=== PATIENT | male | born 1960 | race Caucasian/White ===

== ENCOUNTER 2018-12-10 22:48 | Inpatient (IN) | payer MEDICAID, SELFPAY ==
[~2018-12-10] VITALS: Ht 172.7 cm; Wt 64.3 kg
[2018-12-10] MEDS ORDERED: MOM 30ML SUSPENSION UDC PO PRN (23:00)
[2018-12-10 23:29] VITALS: BP 140/92
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
[2018-12-11 06:33] VITALS: BP 160/86
[2018-12-11 18:00] VITALS: BP 125/65
--- NOTE | 2018-12-11 18:25 | NUR ---
Patient seen, note to follow
[2018-12-11] MEDS: traZODone 50 MG TAB PO PRN (22:34)
[2018-12-11] MEDS: ACETAMINOPHEN TAB 650MG DOSE (2X325MG) PO PRN (22:34)
[2018-12-12 06:30] VITALS: BP 137/86
[2018-12-12] MEDS ORDERED: FLUoxetine 10 MG CAP PO SCH (09:00)
[2018-12-12 18:00] VITALS: BP 123/77
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
[2018-12-12] MEDS: ACETAMINOPHEN TAB 650MG DOSE (2X325MG) PO PRN (21:50)
[2018-12-12] MEDS: traZODone 50 MG TAB PO PRN (21:55)
[2018-12-12] MEDS: MAALOX 30 ML SUSP *UDC PO PRN (22:25)
--- NOTE | 2018-12-13 04:35 | MHIPN ---
DATE: 12/10/2018 CHIEF COMPLAINT: Feels depressed. SUBJECTIVE: Seen for followup, in the presence of staff. Feels depressed, and says he has been in contact with his girlfriend, and that she says they are to remain apart, says he is concerned about his things as well, as they are still at the place they were living at, he says it is sixteen years of a relationship, as well as things, and he is concerned that his things may be discarded. He says he has no friends, and cannot ask anyone to assist him in that. MENTAL STATUS EXAMINATION: He is neat, cooperative. No agitation. No psychomotor retardation. He is tearful. Has suicidal thoughts. No firm plans. No homicidal ideas or intents. No evidence of any psychosis. Judgment and insight remain compromised. ASSESSMENT: Major depressive disorder. PLAN: He has been started on Prozac. We will increase it to 20 mg daily to help address his current state. We will encourage him to participate in activities on the unit. Tomorrow he will see the assigned psychiatrist, and the rest of the treatment team, so assistance can be offered regarding his social situation as well. This has quite a distinct impact on his own wellbeing. VITAL SIGNS: Blood pressure 157/86, pulse 92, temperature is 97.9.
[2018-12-13 06:00] VITALS: BP 134/76
[2018-12-13] MEDS: FLUoxetine 20 MG CAP PO SCH (08:32)
--- NOTE | 2018-12-13 10:56 | MHIPNPDOC ---
[facility] Progress Note Progress Note DATE OF SERVICE: 12/13/18 HISTORY: As per previous records (Dr. Morris's): "He is 58 years old. He is , has two children from a previous marriage. Has been living with his girl since the last 16 years. He says has been depressed for the last couple of months or so, says matters worsened after he received an eviction noticed, says generally gets along with his girlfriend, but has felt down for a considerable portion of the last few weeks. Sleep has been erratic. Appetite is fair, concentration is more difficult. Denies he felt suicidal till lately when he and his girlfriend had gone to see a couple of his best friends, says they had been drinking. He was asked to leave, he is not quite sure why, says he left and his girlfriend later. She told him she had slept with one of his best friends. He was quite upset, and she in fact blamed him for her sleeping with his best friend. He said he did not quite understand that. At some point, she asked him to leave as well, he says he then took an overdose, trazodone wanting to . Says matters were hazy at the time. He does not think he lost consciousness. The police were called. He was brought here. He was seen in the emergency room, was going to be admitted to inpatient psychiatric, but has noticed that his CPK values were quite raised, so he was admitted to the department of medicine where he has been seen by Dr. Roselia Manuel and the CPK values are falling, has been given intravenous fluids as well. Dr. Manuel had informed she is not quite sure whey the CPK values have gone up, but he is now being medically cleared, as they were coming down." VITAL SIGNS: See below. NEW TEST RESULTS: See below CURRENT MEDICATIONS: See below. MENTAL STATUS EXAMINATION: Patient is a 58 year old male, who is alert, cooperative, dressed in hospital clothes. Speech: Is fluent, spontaneous, normal rate, tone and volume. Language skills are good. Thought processes including: intact. Thought content: angry thoughts, depressive thoughts, anxious thoughts all of them to his recent problems with his ex girlfriend who cheated on him with one of his "friends". Description of abnormal or psychotic thoughts: Denies HI, denies active SI but admits to passive SI. Denies paranoia, denies AV hallucinations Judgment: fair Insight: limited. Orientation: x 3. Recent and remote memory: good. Attention span and concentration: good. Language: average. Fund of knowledge: average. Mood: depressed/anxious/irritable. Affect: congruent with mood DIAGNOSES: Other specified depressive disorder. Consider major depressive disorder. Status post overdose. Breakup with girlfriend. Limited social supports. ASSESSMENT: patient is very hurt about his girlfriend cheating on him with one of his "best friends". She told him that he had thrown her into somebody's else's arms. He says he didn't do that although he admits to have an anger problem, but despite his anger problem, he was very patient with her because she was hyper verbal especially after she took her medications in the morning. He says that she is bipolar, that she was very happy one day and next one show would lash out at him. He says that he finds himself back at square one, having to start from zero, because "everything that we had built for 16 years is gone". The patient admits to passive SI, he says that he has been attending groups and he finds them helpful. Denies medication side effects, denies psychosis. His CPK is still high, I will keep him only on his current medications until his CPK normalizes, then I may want to add something for his anger problem MANAGEMENT PLAN: As above TIME SPENT: 20 minutes. Vital Signs Vital Signs Date Time Temp Pulse Resp B/P (MAP) Pulse Ox O2 Delivery O2 Flow Rate FiO2 12/13/18 06:00 98.2 55 18 134/76 (95) Laboratory Data [facility] Labs Laboratory Tests 2 12/12/18 19:13: Total Creatine Kinase 746H 12/13/18 06:37: Total Creatine Kinase 722H Current Medications Current Medications Acetaminophen (Tylenol Tab) 650 mg Q6HP PRN PO HEADACHE or DISCOMFORT Last administered on 12/12/18at 21:50; Start 12/10/18 at 23:00 Al Hydrox/Mg Hydrox/Simethicone (Mylanta) 30 ml Q4HP PRN PO HEARTBURN/INDIGESTION Last administered on 12/12/18at 22:25; Start 12/10/18 at 23:00 Fluoxetine HCl (PROzac) 10 mg DAILY PO Last administered on 12/12/18at 08:37; Start 12/12/18 at 09:00; Stop 12/12/18 at 13:00; Status DC Fluoxetine HCl (PROzac) 20 mg DAILY PO Last administered on 12/13/18at 08:32; Start 12/13/18 at 09:00 Magnesium Hydroxide (Milk Of Magnesia) 30 ml DAILYPRN PRN PO CONSTIPATION; Start 12/10/18 at 23:00 Trazodone HCl (Desyrel) 50 mg QHSP PRN PO INSOMNIA Last administered on 12/12/18at 21:55; Start 12/10/18 at 23:00 Allergies Coded Allergies: No Known Allergies (Verified , 03/27/03) GROVER NORTON MD Dec 13, 2018 10:55
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
[2018-12-13] MEDS: ACETAMINOPHEN TAB 650MG DOSE (2X325MG) PO PRN ×2 (13:01→21:03)
[2018-12-13 18:00] VITALS: BP 122/77
[2018-12-13] MEDS: traZODone 50 MG TAB PO PRN (21:01)
[2018-12-14] MEDS: ACETAMINOPHEN TAB 650MG DOSE (2X325MG) PO PRN ×2 (04:44→21:39)
[2018-12-14 06:44] VITALS: BP 160/70
[2018-12-14] MEDS: FLUoxetine 20 MG CAP PO SCH (08:23)
[2018-12-14 09:27] LABS: ALT/SGPT 59 U/L (12-78); BILIRUBIN,TOTAL 0.3 MG/DL (0.2-1.0); BLOOD UREA NITROGEN 16 MG/DL (7-18); CALCIUM LEVEL 9.3 MG/DL (8.5-10.1); CARBON DIOXIDE LEVEL 32 MEQ/L (21-32); CHLORIDE LEVEL 101 MEQ/L (98-107); CPK CREATINE PHOSPHOKINASE 671 U/L (39-308); GLOMERULAR FILTRATION RATE > 60.0 (>56); GLUCOSE, FASTING 70 MG/DL (70-100); POTASSIUM SERUM 4.3 MEQ/L (3.5-5.1); SODIUM LEVEL 139 MEQ/L (136-145)
[2018-12-14 18:00] VITALS: BP 136/69
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
[2018-12-14] MEDS: traZODone 50 MG TAB PO PRN (21:39)
[2018-12-15] MEDS: ACETAMINOPHEN TAB 650MG DOSE (2X325MG) PO PRN (05:47)
[2018-12-15 06:47] VITALS: BP 132/70
[2018-12-15] MEDS: FLUoxetine 20 MG CAP PO SCH (08:22)
[2018-12-15] MEDS: IBUPROFEN 600 MG TAB PO PRN (11:47)
[2018-12-15] MEDS: MAALOX 30 ML SUSP *UDC PO PRN (15:30)
[2018-12-15] MEDS: GABAPENTIN 300 MG CAP PO SCH ×2 (17:12→21:16)
[2018-12-15 18:00] VITALS: BP 155/79
[2018-12-15] MEDS ORDERED: LIDOCAINE 5% (LIDODERM) PATCH TD ONE (19:00)
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
[2018-12-15] MEDS: traZODone 50 MG TAB PO PRN (21:16)
[2018-12-16 06:40] VITALS: BP 146/72
[2018-12-16] MEDS: IBUPROFEN 600 MG TAB PO PRN (06:49)
[2018-12-16] MEDS: GABAPENTIN 300 MG CAP PO SCH (08:10)
[2018-12-16] MEDS: FLUoxetine 20 MG CAP PO SCH (08:10)
--- NOTE | 2018-12-16 09:37 | REP ---
MRI LUMBAR SPINE WITHOUT CONTRAST: HISTORY: Back pain. Decreased signal intensity on T2-weighted images is present in the L3-4 through L5-S1 intervertebral discs. The discs are decreased in height. These findings are consistent with disc degeneration. There is no disc bulge or herniation at the L1-2 and L2-3 levels. The nerves exit the neural foramina without compression. A diffuse disc bulge is present at the L3-4 level. There is minimal compression of the thecal sac. There is hypertrophy of the posterior articulating facets. The L3 nerves exit the neural foramina without compression. A diffuse disc bulge is present at the L4-5 level. There is minimal compression of the thecal sac. There is hypertrophy of the posterior articulating facets. The L4 nerves exit the neural foramina without compression. A diffuse disc bulge is present at the L5-S1 level. This abuts the thecal sac and S1 nerves. There is hypertrophy of the posterior articulating facets. The L5 nerves exit the neural foramina without compression. The conus medullaris is normal in appearance terminating at the level of the T11-12 intervertebral disc. Normal signal intensity is present in the lumbar vertebral bodies. IMPRESSION: 1. Diffuse disc bulges at the L3-4 and L4-5 levels with minimal thecal sac compression. 2. Diffuse disc bulge at the L5-S1 level. This abuts the thecal sac and S1 nerves. Electronically Signed by Lowell Mahan MD 12/16/2018 09:41 A
[2018-12-16] MEDS ORDERED: FLUO20CA19 PO (11:31)
[2018-12-16] MEDS ORDERED: IBUP-1022 PO (11:31)
[2018-12-16] MEDS ORDERED: GABA-843 PO (11:31)
[2018-12-16] MEDS ORDERED: TRAZO50TA PO (11:31)
--- NOTE | 2018-12-20 11:42 | MHDSPDOC ---
[facility] Discharge Summary Discharge Summary DATE OF ADMISSION: Dec 10, 2018 at 23:12 DATE OF DISCHARGE: Dec 16, 2018 DISCHARGE DIAGNOSES: 1.Other specified depressive disorder. 2.Cannabis use disorder 3. Tobacco use disorder 4. Alcohol use disorder REASON FOR ADMISSION: Per Dr. mendes's H and P : "He is 58 years old. He was recently from his girlfriend.He has been in the past, has two children, they live in [place], near their mother. He was brought to the hospital after he had overdosed, and was also found to have high levels of creatine kinase, and was admitted to the medical floor before being transferred here. I saw him yesterday on the medical floor, on consult service, please refer to my summary for details related to the patient's hospitalization, circumstances leading up to it. He and his girlfriend broke up after she told him that she slept with his best friend, was a few days ago, earlier in the week, and the patient had been asked to leave the gathering, he says that he has been quite distraught with that, and took the overdose. He said he is also being evicted, and this has been stressing him out as well. He also indicated that he was not fully open with me yesterday, and that he has been suicidal for the last several weeks. Says he increasingly found it hard to cope. Does not take alcohol steadily, smokes marijuana regularly."" CONSULTANTS INVOLVED: None TREATMENT AND PROGRESS ON THE UNIT : Patient admitted on a 9.39 involuntary status from medical floor having depression in context of recent eviction and his girlfriend of 17 years cheating on him with his friend. On the medical floor post overdose he was given fluids for rhabdomyolysis with a CPK which trended do wn from 746 to 400's. He was started on 10 mg daily Po fluoxetine for mood and gabapentin 300 mg Po TID for back pain. He was encouraged to drink fluids and counselled regarding reported daily cannabis use, tobacco use and alcohol use. His fluoxetine was titrated up to 20 mg PO daily, reported improved mood after receiving individual and group therapy. Reports history of multiple past girlfriends cheating on him and issues with trusting others. We discussed how therapy may benefit him and his future relationships. During stay he denied suicidal or homicidal ideations or medication side effects. HOSPITAL COURSE: See above. DISCHARGE ASSESSMENT: On discharge patient in no acute distress, smiling with good eye contact, alert and oriented times 4, ready to leave, denies suicidal or homicidal ideations, denies hallucinations, denies paranoia, denies hattie. Mood is "good". MENTAL STATUS EXAMINATION ON DISCHARGE: Patient is a 58 year old male, who is alert, cooperative, thin with pool hair in ponytail, dressed in hospital clothes. Speech: Is fluent, spontaneous, normal rate, tone and volume. Language skills are good. Thought processes including: intact. Thought content: goal directed, he has plans for the future. Description of abnormal or psychotic thoughts: Denies SI, denies HI. Denies paranoia, denies AV hallucinations Judgment: fair Insight: limited Orientation: x 3. Recent and remote memory: good. Attention span and concentration: good. Language: average. Fund of knowledge: average. Mood: "good" Affect: euthymic,congruent with mood, smiles MEDICATIONS ON DISCHARGE: Scheduled Fluoxetine Hcl (Fluoxetine HCl) 20 Mg Cap, 20 MG PO DAILY for depression Gabapentin (Gabapentin) 300 Mg Cap, 300 MG PO TID for neuropathic pain Scheduled PRN Ibuprofen (Ibuprofen) 600 Mg Tab, 600 MG PO Q6HP PRN for MODERATE PAIN (PS 5-7) Trazodone HCl (Trazodone HCl) 50 Mg Tab, 50 MG PO QHSP PRN for INSOMNIA PLAN/FOLLOWUP ARRANGEMENTS: Follow Up Care Education Label * Medical * Medical Follow Up [facility] * Established With This Provider No * Therapist DR. CHAVIS * Date Dec 24, 2018 * Time 15:00 * Address of Clinic or Practice [address] [place] [address] * * Additional information Please arrive 15 minutes early to fill out new patient paperwork. Remember to bring your photo ID and insurance card. Follow Up Care Education Label * Mental Health Appt 1 * [facility] * Established With This Provider No * Therapist LA NENA * Date Dec 22, 2018 * Time 08:00 * Address of Clinic or Practice [address] [place] [address] * * Additional information Remember to bring your photo ID and insurance card. Follow Up Care Education Label * Mental Health Appt 2 * [facility] * Established With This Provider No * Therapist KRYSTIAN * Date Jan 11, 2019 * Time 10:30 * Address of Clinic or Practice [address] [place] [address] * * Additional information Remember to bring your photo ID and insurance card. The amount of time spent in the coordination of care for this patient was approximately 30 minutes. Vital Signs/I&Os Vital Signs Date Time Temp Pulse Resp B/P (MAP) Pulse Ox O2 Delivery O2 Flow Rate FiO2 12/16/18 06:40 98.1 79 16 146/72 (96) Laboratory Data Labs 24H Laboratory Tests 2 12/16/18 07:09: Total Creatine Kinase 476H Medications Scheduled Fluoxetine Hcl (Fluoxetine HCl) 20 Mg Cap, 20 MG PO DAILY for depression, #7 Gabapentin (Gabapentin) 300 Mg Cap, 300 MG PO TID for neuropathyc pain, #21 Scheduled PRN Ibuprofen (Ibuprofen) 600 Mg Tab, 600 MG PO Q6HP PRN for MODERATE PAIN (PS 5-7), #28 Trazodone HCl (Trazodone HCl) 50 Mg Tab, 50 MG PO QHSP PRN for INSOMNIA, #7 Allergies Coded Allergies: No Known Allergies (Verified , 03/27/03) WILY CHO PGY-1 Dec 16, 2018 13:40
== END 2018-12-16 15:05 | disposition home or self-care (01) | DRG 753 ==
LOC: M PSY 23:12
PROVIDERS: ADMIT Psychiatry & Neurology Psychiatry; ATTEND Psychiatry & Neurology Psychiatry
DX: F32.89 Other specified depressive episodes (principal); F17.210 Nicotine dependence, cigarettes, uncomplicated; F12.10 Cannabis abuse, uncomplicated; H54.62 Unqualified visual loss, left eye, normal vision right eye; F10.10 Alcohol abuse, uncomplicated; Z63.0 Problems in relationship with spouse or partner; Z91.5 Personal history of self-harm

== ENCOUNTER 2019-03-28 08:32 | Day surgery (SDC) | payer OTHER ==
[~2019-03-28] VITALS: Ht 172.7 cm; Wt 58.2 kg
[~2019-03-28 08:32] MED LIST: FLUO20CA19 PO; GABA-843 PO; IBUP-1022 PO; TRAZ1TAB10 PO; VITA200028 PO
[2019-03-28] MEDS ORDERED: NS 1,000 ML IV ONE (09:00)
[2019-03-28] MEDS ORDERED: LIDOCAINE 2% INJ 100 MG/5 ML SDV (FOR ANES.) As Ordered ONE (10:08)
[2019-03-28] MEDS ORDERED: PROPOFOL 200 MG/20 ML VIAL As Ordered ONE ×2 (10:08→10:31)
--- NOTE | 2019-03-28 10:54 | ROOR ---
Patient Name: Frederic Narayanan Procedure Date: 03/28/2019 10:16 AM Date of : 1960 Age: 58 Room: [facility] Gender: Male Note Status: Finalized Procedure: Colonoscopy Indications: Screening for colorectal malignant neoplasm Providers: Christopher Zhang MD Referring MD: Lex CHAIVS MD Requesting Provider: Medicines: Monitored Anesthesia Care Complications: No immediate complications. Procedure: Pre-Anesthesia Assessment: - Prior to the procedure, a History and Physical was performed, and patient medications and allergies were reviewed. The patient is competent. The risks and benefits of the procedure and the sedation options and risks were discussed with the patient. All questions were answered and informed consent was obtained. Patient identification and proposed procedure were verified by the physician, the nurse and the anesthesiologist in the procedure room. Mental Status Examination: alert and oriented. Airway Examination: normal oropharyngeal airway and neck mobility. Respiratory Examination: clear to auscultation. CV Examination: normal. Prophylactic Antibiotics: The patient does not require prophylactic antibiotics. Prior Anticoagulants: The patient has taken no previous anticoagulant or antiplatelet agents. ASA Grade Assessment: II - A patient with mild systemic disease. After reviewing the risks and benefits, the patient was deemed in satisfactory condition to undergo the procedure. The anesthesia plan was to use monitored anesthesia care (MAC). Immediately prior to administration of medications, the patient was re-assessed for adequacy to receive sedatives. The heart rate, respiratory rate, oxygen saturations, blood pressure, adequacy of pulmonary ventilation, and response to care were monitored throughout the procedure. The physical status of the patient was re-assessed after the procedure. The Colonoscope was introduced through the anus and advanced to the cecum, identified by appendiceal orifice and ileocecal valve. The colonoscopy was performed without difficulty. The patient tolerated the procedure well. The quality of the bowel preparation was fair. The ileocecal valve, appendiceal orifice, and rectum were photographed. Scope insertion time was 3 minutes. Scope withdrawal time was 9 minutes. The total duration of the procedure was 12 minutes. Findings: The perianal and digital rectal examinations were normal. Two sessile polyps were found in the ascending colon. The polyps were 10 to 12 mm in size. These polyps were removed with a hot snare. Resection and retrieval were complete. Verification of patient identification for the specimen was done by the physician and nurse using the patient's name, date and medical record number. Estimated blood loss was minimal. A 15 mm polyp was found in the transverse colon. The polyp was sessile. The polyp was removed with a hot snare. Resection and retrieval were complete. A few sessile polyps were found in the recto-sigmoid colon. The polyps were 4 to 5 mm in size. These polyps were removed with a cold snare. Resection and retrieval were complete. Non-bleeding external and internal hemorrhoids were found during retroflexion. The hemorrhoids were small. Impression: - Preparation of the colon was fair. - Two 10 to 12 mm polyps in the ascending colon, removed with a hot snare. Resected and retrieved. - One 15 mm polyp in the transverse colon, removed with a hot snare. Resected and retrieved. - A few 4 to 5 mm polyps at the recto-sigmoid colon, removed with a cold snare. Resected and retrieved. - Non-bleeding external and internal hemorrhoids. Recommendation: - Patient has a contact number available for emergencies. The signs and symptoms of potential delayed complications were discussed with the patient. Return to normal activities tomorrow. Written discharge instructions were provided to the patient. - High fiber diet. - Continue present medications. - Await pathology results. - Repeat colonoscopy in 3 years for surveillance based on pathology results. - Telephone GI clinic for pathology results in 2 weeks. - Return to primary care physician. Christopher Zhang MD Christopher Zhang MD 03/28/2019 10:54:10 AM Electronically signed by Christopher Zhang MD Number of Addenda: 0 Note Initiated On: 03/28/2019 10:16 AM Estimated Blood Loss: Estimated blood loss was minimal.
[2019-03-28 11:25] VITALS: BP 122/84
[2019-03-30] MEDS ORDERED: VITAD1000T PO (13:10)
== END 2019-03-28 12:50 | disposition home or self-care (01) ==
LOC: M OPP 08:32
PROVIDERS: ATTEND Internal Medicine Gastroenterology
DX: Z12.11 Encounter for screening for malignant neoplasm of colon (principal); K64.8 Other hemorrhoids; D12.4 Benign neoplasm of descending colon; K63.5 Polyp of colon; Z79.899 Other long term (current) drug therapy; F17.210 Nicotine dependence, cigarettes, uncomplicated

== ENCOUNTER 2019-03-30 11:06 | Inpatient (IN) | payer OTHER ==
[~2019-03-30] VITALS: Ht 172.7 cm; Wt 59.4 kg
[2019-03-30] MEDS ORDERED: PROZ40CA PO (11:14)
[2019-03-30] MEDS ORDERED: ZYPR5TAB2 PO (11:14)
[2019-03-30 11:55] LABS: BASO % 0.5 % (0.0-1.0); EOS # 0.3 10^3/uL (0.0-0.50); EOS % 3.9 % (0.0-3.0); HEMATOCRIT 43.5 % (42.0-52.0); HEMOGLOBIN 13.9 g/dl (13.5-17.5); LYMPH # 2.2 10^3/uL (1.5-4.5); LYMPH % 24.8 % (24.0-44.0); MEAN CORPUSCULAR HEMOGLOBIN 30.6 pg (27.0-33.0); MEAN CORPUSCULAR VOLUME 95.8 fl (80.0-96.0); MONO # 0.7 10^3/uL (0.0-0.8); MONO % 7.8 % (0.0-5.0); NEUTROPHILS # 5.5 10^3/uL (1.8-7.7); NEUTROPHILS % 62.7 % (36.0-66.0); PLATELET COUNT, AUTOMATED 240 10^3/uL (150-450); RED BLOOD COUNT 4.54 10^6/uL (4.30-6.10); WHITE BLOOD COUNT 8.8 10^3/uL (4.0-10.0)
[2019-03-30 12:06] LABS: INR 0.89; PARTIAL THROMBOPLASTIN TIME 27.7 SECONDS (25.0-38.4); PROTHROMBIN TIME 11.8 SECONDS (11.8-14.0)
[2019-03-30 12:21] LABS: ALBUMIN 3.9 GM/DL (3.2-5.2); ALT/SGPT 72 U/L (12-78); BILIRUBIN,DIRECT < 0.1 MG/DL (0.0-0.2); BILIRUBIN,TOTAL 0.2 MG/DL (0.2-1.0); BLOOD UREA NITROGEN 17 MG/DL (7-18); CALCIUM LEVEL 9.4 MG/DL (8.5-10.1); CARBON DIOXIDE LEVEL 31 MEQ/L (21-32); CHLORIDE LEVEL 101 MEQ/L (98-107); CREATININE FOR GFR 1.02 MG/DL (0.70-1.30); GLOMERULAR FILTRATION RATE > 60.0 (>56); GLUCOSE, FASTING 93 MG/DL (70-100); LIPASE 142 U/L (73-393); POTASSIUM SERUM 4.7 MEQ/L (3.5-5.1); SODIUM LEVEL 139 MEQ/L (136-145); TOTAL PROTEIN 6.9 GM/DL (6.4-8.2)
[2019-03-30] MEDS ORDERED: PANTOPRAZOLE 40MG INJ (PROTONIX) (C9113) IV ONE (12:45)
[2019-03-30] MEDS: NS 1,000 ML IV SCH ×3 (12:49→20:37)
[2019-03-30] MEDS ORDERED: FLUO20CA19 PO (13:10)
[2019-03-30] MEDS ORDERED: TRAZ-252 PO (13:10)
[2019-03-30] MEDS ORDERED: GABA600T4 PO (13:10)
[2019-03-30] MEDS ORDERED: CHOL100029 PO (13:10)
[2019-03-30] MEDS ORDERED: VENTAER INH (13:10)
[2019-03-30] MEDS ORDERED: IBUP1TAB6 PO (13:10)
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
[2019-03-30] MEDS: GABAPENTIN 300 MG CAP PO SCH ×2 (16:33→22:03)
[2019-03-30 19:21] LABS: HEMATOCRIT 37.4 % (42.0-52.0)
[2019-03-30] MEDS ORDERED: traZODone 50 MG TAB PO SCH (21:00)
[2019-03-30] MEDS ORDERED: OLANZapine 5 MG TAB PO SCH (21:00)
[2019-03-30 22:00] VITALS: BP_SYST 103; BP_SYST 105; BP_SYST 111; BP_DIAS 62; BP_DIAS 65; BP_DIAS 66
[2019-03-31] MEDS: NS 1,000 ML IV SCH ×2 (00:42→04:42)
[2019-03-31 05:51] LABS: HEMATOCRIT 38.2 % (42.0-52.0); HEMOGLOBIN 12.2 g/dl (13.5-17.5); MEAN CORPUSCULAR HEMOGLOBIN 31.2 pg (27.0-33.0); MEAN CORPUSCULAR HGB CONC 31.9 g/dl (32.0-36.5); MEAN CORPUSCULAR VOLUME 97.7 fl (80.0-96.0); PLATELET COUNT, AUTOMATED 185 10^3/uL (150-450); RED BLOOD COUNT 3.91 10^6/uL (4.30-6.10); WHITE BLOOD COUNT 7.9 10^3/uL (4.0-10.0)
[2019-03-31 06:00] VITALS: BP_SYST 120; BP_SYST 132; BP_SYST 140; BP_DIAS 77; BP_DIAS 80
[2019-03-31 06:11] LABS: BLOOD UREA NITROGEN 11 MG/DL (7-18); CALCIUM LEVEL 7.7 MG/DL (8.5-10.1); CARBON DIOXIDE LEVEL 30 MEQ/L (21-32); CHLORIDE LEVEL 112 MEQ/L (98-107); CREATININE FOR GFR 0.85 MG/DL (0.70-1.30); GLOMERULAR FILTRATION RATE > 60.0 (>56); GLUCOSE, FASTING 98 MG/DL (70-100); POTASSIUM SERUM 4.1 MEQ/L (3.5-5.1); SODIUM LEVEL 145 MEQ/L (136-145)
[2019-03-31] MEDS: GABAPENTIN 300 MG CAP PO SCH (08:42)
[2019-03-31] MEDS ORDERED: FLUoxetine 20 MG CAP PO SCH (09:00)
[2019-03-31] MEDS ORDERED: VITAMIN D 1,000 INTERNATIONAL UNITS TABLET PO SCH (09:00)
[2019-03-31 14:00] VITALS: BP 115/75
--- NOTE | 2019-03-31 14:16 | DS.PDOC ---
Discharge Summary General Date of Admission Mar 30, 2019 at 14:25 Date of Discharge 03/31/19 Attending Physician: TANVIR HORNER MD Discharge Summary PROCEDURES PERFORMED DURING STAY: None ADMITTING DIAGNOSES: Post procedural adverse reaction 2/2 significant polyp removal DISCHARGE DIAGNOSES: Post procedural adverse reaction 2/2 significant polyp removal COMPLICATIONS/CHIEF COMPLAINT: Bright red blood per rectum HISTORY OF PRESENT ILLNESS: Patient is a 58-year-old male who presented to ER after one episode of bleeding from his anus. He had an elective colonoscopy on March 28 of this year. During the colonoscopy he had multiple polyps removed with both hot and cold snares; he was also noted to have internal and external hemorrhoids at the time of the procedure. He had tolerated the procedure and was healing well until 3 am yesterday morning when he awoken by painful abdominal cramps. At that time he noticed bright red blood per his rectum that spontaneously resolved. He has not had any bleeding like this before in the past and has not had any bleeding since 3am yesterday morning. He denies weight loss, hair loss, headache, visual changes, chest pain, shortness of breath, cough, nausea, vomiting, diarrhea, muscle aches, worsening arthritis, change in mood HOSPITAL COURSE: He was given IV fluids in the ER and proven to be hemodynamically stable. Gastroenterology was consulted and patient was admitted to [facility]. H&H was monitored; patient did not have another episode of bleeding and H&H remained within normal limits. He was placed on a clear liquid diet. DISCHARGE MEDICATIONS: Please see below. ALLERGIES: Please see below. PHYSICAL EXAMINATION ON DISCHARGE: VITAL SIGNS: Please see below. GENERAL: patient is lying in bed and comfortable HEENT: Moist mucous membranes CARDIOVASCULAR EXAMINATION: RRR, S1S2 regular RESPIRATORY EXAMINATION: Clear to auscultation bilaterally ABDOMINAL EXAMINATION: soft, nontender, no organomegaly appreciated. EXTREMITIES: no edema or cyanosis noted SKIN: no ecchymosis noted NEUROLOGICAL EXAMINATION: CNII-XII intact, AAOx3 PSYCHIATRIC EXAMINATION: Normal affect LABORATORY DATA: Please see below. IMAGING: Colonoscopy 03/28/19: Preparation of the colon was fair. Two 10 to 12 mm polyps in the ascending colon, removed with a hot snare. Resected and retrieved. One 15 mm polyp in the transverse colon, removed with a hot snare. Resected and retrieved. A few 4 to 5 mm polyps at the recto-sigmoid colon, removed with a cold snare. Resected and retrieved. Non-bleeding external and internal hemorrhoids. PROGNOSIS: Good ACTIVITY: Can ambulate without a walker or cane DIET: As tolerated DISPOSITION: Patient is being discharged home. He is comfortable and stable. DISCHARGE INSTRUCTIONS: 1. Return to ER for an emergency ITEMS TO FOLLOWUP ON ON OUTPATIENT: 1. Dr. Coto 04/01 at 5:40 ([phone]) 2. Referral: Dr. Zhang's office will call with an appointment ([phone]) DISCHARGE CONDITION: Stable I saw and evaluated the patient. I agree with the findings and plan of care as documented in the documenters note. I spent 45 minutes coordinating this patient's discharge. Vital Signs/I&Os Vital Signs Date Time Temp Pulse Resp B/P (MAP) Pulse Ox O2 Delivery O2 Flow Rate FiO2 03/31/19 06:00 62 120/77 (91) 70 132/80 (97) 78 140/80 (100) 03/30/19 22:00 97.2 18 98 03/30/19 11:07 Room Air I&O- Last 24 Hours up to 6 AM 03/31/19 06:00 Intake Total 3150 ml Balance 3150 ml Laboratory Data Labs 24H Laboratory Tests 2 03/31/19 05:23: Nucleated Red Blood Cells % (auto) 0.0, Anion Gap 3L, Glomerular Filtration Rate > 60.0, Blood Urea Nitrogen 11, Creatinine 0.85, Sodium Level 145, Potassium Level 4.1, Chloride Level 112H, Carbon Dioxide Level 30, Calcium Level 7.7#L CBC/BMP Laboratory Tests 03/30/19 19:09 03/31/19 05:23 Red Blood Count 3.91 L, Mean Corpuscular Volume 97.7 H, Mean Corpuscular Hemoglobin 31.2, Mean Corpuscular Hemoglobin Concent 31.9 L, Red Cell Distribution Width 14.3, Calcium Level 7.7 #L Discharge Medications Scheduled Fluoxetine Hcl (Fluoxetine HCl) 20 Mg Capsule, 40 MG PO DAILY, (Reported) Gabapentin (Gabapentin) 600 Mg Tablet, 600 MG PO TID, (Reported) Olanzapine (Zyprexa) 5 Mg Tablet, 2.5 MG PO QHS, (Reported) Trazodone HCl (Trazodone HCl) 50 Mg Tablet, 50 MG PO QHS, (Reported) Vitamin D (Vitamin D3) 1,000 Unit Tablet, 1,000 UNITS PO DAILY, (Reported) Scheduled PRN Albuterol Sulfate (Ventolin Hfa) 18 Gm Hfa.aer.ad, 2 PUFF INH Q4H PRN for SHORTNESS OF BREATH, (Reported) Ibuprofen (Ibuprofen) 600 Mg Tablet, 600 MG PO TID PRN for PAIN, (Reported) Allergies Coded Allergies: No Known Allergies (Verified , 03/27/03) KRYSTIAN RICHARDSON S-3 Mar 31, 2019 14:16 TANVIR HORNER MD Apr 01, 2019 14:55
[2019-05-16] MEDS ORDERED: FLUO10CA15 PO (11:58)
[2019-05-25] MEDS ORDERED: FLUO10CA15 PO (11:39)
[2019-05-31] MEDS ORDERED: FLUO10CA15 PO (10:56)
== END 2019-03-31 15:44 | disposition home or self-care (01) | DRG 253 ==
LOC: M ED 11:06 → M ED INP 14:25 → M MSPAV 16:00
PROVIDERS: ADMIT Internal Medicine; ATTEND Internal Medicine
DX: K62.5 Hemorrhage of anus and rectum (principal); E55.9 Vitamin D deficiency, unspecified; F32.9 Major depressive disorder, single episode, unspecified; G47.00 Insomnia, unspecified; G40.909 Epilepsy, unspecified, not intractable, without status epilepticus; F17.200 Nicotine dependence, unspecified, uncomplicated; K64.4 Residual hemorrhoidal skin tags; M54.5 Low back pain; H54.62 Unqualified visual loss, left eye, normal vision right eye; Z87.820 Personal history of traumatic brain injury; Z79.899 Other long term (current) drug therapy; Z86.010 Personal history of colon polyps

== ENCOUNTER → 2019-04-26 | Outpatient (REF) ==
[~2019-04-26] MED LIST changes: +GABA600T4 PO; +IBUP1TAB6 PO; +PROZ40CA PO; +TRAZ-252 PO; +VENTAER INH; +VITAD1000T PO; +ZYPR5TAB2 PO
--- NOTE | 2019-04-27 02:25 | REP ---
Clinical: Pain and disability. Technique: AP, lateral, coned-down views of the lumbosacral spine. Findings: Moderate multilevel degenerative changes include endplate sclerosis, early marginal spurring, hypertrophic facet changes and disc space narrowing. Findings most pronounced at L4-5 and L5-S1. No acute fracture / compression injury or subluxation. Impression: Moderate multilevel degenerative changes predominantly involving L4-S1. Electronically Signed by Blayne Ray MD 04/27/2019 02:16 A
--- NOTE | 2019-04-27 03:02 | REP ---
Clinical: Pain and disability. Technique: AP, lateral, open mouth views of the cervical spine. Findings: Advanced degenerative disc osteophyte complex at C4-5, C5-6, and C6-7. Findings include osteophytosis, endplate sclerosis and disc space narrowing. Facet arthropathy cannot be excluded as well. No acute fracture / compression injury or subluxation. Alignment is relatively maintained. Open mouth view demonstrates normal C1-C2 articulation and odontoid process. Impression: Advanced degenerative changes C4-C7. Electronically Signed by Blayne Ray MD 04/27/2019 02:54 A
== END ==
LOC: M SMT 11:56
PROVIDERS: ATTEND Internal Medicine
DX: Z00.00 Encounter for general adult medical examination without abnormal findings (principal)

== ENCOUNTER 2019-05-12 15:44 | Inpatient (IN) | payer MEDICAID, OTHER ==
[~2019-05-12] VITALS: Ht 172.7 cm; Wt 60.2 kg
[2019-05-12 18:06] LABS: HEMATOCRIT 42.9 % (42.0-52.0); HEMOGLOBIN 14.1 g/dl (13.5-17.5); MEAN CORPUSCULAR HEMOGLOBIN 31.1 pg (27.0-33.0); MEAN CORPUSCULAR HGB CONC 32.9 g/dl (32.0-36.5); MEAN CORPUSCULAR VOLUME 94.7 fl (80.0-96.0); PLATELET COUNT, AUTOMATED 234 10^3/uL (150-450); RED BLOOD COUNT 4.53 10^6/uL (4.30-6.10); WHITE BLOOD COUNT 10.3 10^3/uL (4.0-10.0)
[2019-05-12 18:29] LABS: ACETAMINOPHEN LEVEL < 2.0 UG/ML (10.0-30.0); ALBUMIN 3.9 GM/DL (3.2-5.2); ALT/SGPT 58 U/L (12-78); BILIRUBIN,DIRECT 0.1 MG/DL (0.0-0.2); BILIRUBIN,TOTAL 0.3 MG/DL (0.2-1.0); BLOOD UREA NITROGEN 17 MG/DL (7-18); CALCIUM LEVEL 9.4 MG/DL (8.5-10.1); CARBON DIOXIDE LEVEL 26 MEQ/L (21-32); CHLORIDE LEVEL 108 MEQ/L (98-107); CREATININE FOR GFR 1.05 MG/DL (0.70-1.30); ETHYL ALCOHOL (ETHANOL) 0.039 % (0.000-0.010); GLOMERULAR FILTRATION RATE > 60.0 (>56); GLUCOSE, FASTING 97 MG/DL (70-100); POTASSIUM SERUM 4.2 MEQ/L (3.5-5.1); SALICYLATE LEVEL 3.7 MG/DL (5.0-30.0); SODIUM LEVEL 142 MEQ/L (136-145); THYROID STIMULATING HORMONE 0.791 uIU/ML (0.358-3.740); TOTAL PROTEIN 6.9 GM/DL (6.4-8.2)
[2019-05-12 19:52] LABS: AMPHETAMINES LEVEL URINE NEGATIVE (NEGATIVE); BARBITURATES URINE NEGATIVE (NEGATIVE); BENZODIAZEPINES URINE NEGATIVE (NEGATIVE); CANNABINOIDS URINE POSITIVE (NEGATIVE); COCAINE METABOLITE URINE NEGATIVE (NEGATIVE); METHADONE URINE NEGATIVE (NEGATIVE); OPIATES URINE NEGATIVE (NEGATIVE); PHENCYCLIDINE URINE NEGATIVE (NEGATIVE)
[2019-05-12] MEDS ORDERED: MOM 30ML SUSPENSION UDC PO PRN (21:00)
[2019-05-12] MEDS ORDERED: MAALOX 30 ML SUSP *UDC PO PRN (21:00)
[2019-05-12] MEDS: GABAPENTIN 300 MG CAP PO SCH (21:58)
[2019-05-12] MEDS: FLUoxetine 20 MG CAP PO SCH (21:58)
[2019-05-12] MEDS: OLANZapine 5 MG TAB PO SCH (21:58)
[2019-05-13 01:05] VITALS: BP 169/89
[2019-05-13 06:39] VITALS: BP 135/86
[2019-05-13] MEDS: FLUoxetine 20 MG CAP PO SCH ×2 (08:52→20:24)
[2019-05-13] MEDS: GABAPENTIN 300 MG CAP PO SCH ×3 (08:52→20:24)
[2019-05-13] MEDS: IBUPROFEN 600 MG TAB PO PRN ×2 (08:53→20:24)
--- NOTE | 2019-05-13 11:34 | MHHPEPDOC ---
[facility] History & Physical History and Physical DATE OF ADMISSION: May 12, 2019 at 20:59 Date of Service: 05/13/2019 Chief Complaint "I got woman problems." History of Present Illness The patient is a 58-year-old man who presented to [facility] with suicidal thoughts. He notes that he has had difficulty with stable housing. He describes having difficulty with a codependent relationship with a woman he had been with for 17 years after the of his 19 years ago. He reports having increased depression, suicidal thoughts with a plan to overdose and loss of interest, fatigue and sadness. He reports having difficulty with a stable housing as the current person he is living with is going to rehab and he would not have significant options for housing. He reports being linked with DSS on his previous admission, but is worried about being sanctioned. He report significant anxiety and worry about his situation. However, he reported that when he had stayed away from his ex for one month and take his medications, he was functional and did very well. He reports that he has been trying to get social security as he does not have a source of income at this time and is unemployed. Review Of Systems Depression: As above with previous episodes provoked by relational trouble as noted above. Anxiety: The patient denies any excessive worry associated with physical symptoms. They deny any experience of discreet panic in the past. Jo: The patient denies any episodes of euphoria/dysphoria associated with decreased need for sleep, hedonism, talkatively or impulsivity lasting longer than 5 days. Psychotic: The patient denies any experiences of auditory or visual hallucinations. They deny any episodes of paranoia or delusional thinking in the past Trauma: The patient denies any traumatic events associated with nightmares or intrusive thoughts. Borderline: The patient screens negative for borderline personality at this junction. Past Psychiatric History The patient has a history of admissions with the last being in November of 2018. He reports having a suicide attempt on that time with trazodone. He currently is on a combination of Prozac 20 mg and gabapentin TID 600 mg for anxiety. He reports having a diagnosis of depression and anxiety. Allergies Please see below. Family Psychiatric History The patient denies/is unaware any history of mental health history including addictions and suicide. Social History The patient grew up in the local area. He reports that his early life was "good." [place]. He describes moving to [place] after meeting his . He had two daughters with her and describes a generally good relationship. He reports she of cancer 19 years ago and this was significantly problematic for him. He reports that after he met a woman who he has been with 17 years, however, recently in this past year she had cheated on him with his best friend and that this had ended their relationship and created a codependent "nightmare" that the patient describes having. He currently has two brothers, three sisters and describes no history of trauma or abuse growing up. He reports having been convicted of assault and spend some time in alf. He currently has [facility] support for rent and supplemental nutrition assistance. He is at this time and describes his orientation as heterosexual. Substance Abuse History The patient has an extensive history of alcohol use, reporting that he used to drink upwards of a case of beer a day and have withdrawal symptoms of tremors, however, he reports cutting down significantly after his last admission and no longer has withdrawals but drinks several times a week, roughly three to four beers at a time. He reports smoking a pack a day of tobacco for many years and reports several times a week cannabis use. He denies opioids, cocaine and other illicit substances. Medical History The patient has a history of multiple brain surgeries in the past and diabetes currently. Mental Status Examination General: Fair. Speech: Spontaneous and fluid Thought processes: Pessimistic and hopeless. MSK: Smooth and coordinated gait, no signs of tremors or involuntary orofacial movements Thought content: Future orientated Abstract reasoning, and computation: Intact Description of associations: Intact Description of abnormal or psychotic thoughts: Denies any suicidal or homicidal ideation. Denies any auditory or visual hallucinations. Does not appear to be responding to internal stimuli. Does not appear to be endorsing any bizarre or paranoid ideation. Judgment: Poor. Insight: Poor Orientation: Alert and orientated 3 Cognition: Grossly normal Recent and remote memory: Intact Attention span and concentration: Intact Fund of knowledge: Adequate Mood: "Bad." Affect: Dysthymic with a constricted range. Diagnoses Unspecified depressive disorder. Rule out substance induced versus adjustment versus MDD. Alcohol use disorder, severe. Tobacco use disorder, severe. Cannabis use disorder, moderate. Assessment and Plan The patient is a 58-year-old man with a reported history of depression after multiple relational stressors and no significant trauma stressors, does appear to have decompensation around multiple stressors, his relations appeared to keep him fairly stable in the past, however, his current codependency is likely a provoking factor for his admission. Disposition The patient will need an admission likely longer than two midnights in order to quell his depression and plan for a safe discharge. Problem List 1. Risk for suicide. 2. Depression. 3. Ineffective coping. Initial Treatment Plan 1. Patient was admitted on a 9.39 legal status. 2. Complete history was obtained. 3. With patients permission, family will be contacted and database will be expanded. 4. Patients medication regimen will be reviewed and changed accordingly. 5. Patient will be provided with protected environment. 6. Patient will be treated with individual, group, and milieu therapies. 7. Patient will receive supportive psych-education. 8. Discharge planning will commence immediately. 9. Outpatient follow-up treatment will be strongly recommended. 10. The initial treatment plan will focus initially on increasing Prozac to 40 mg daily, continue gabapentin as below. Estimated Length Of Stay 3 days. Time Spent 45 minutes. Thursday Vital Signs Vital Signs Date Time Temp Pulse Resp B/P (MAP) Pulse Ox O2 Delivery O2 Flow Rate FiO2 05/13/19 06:39 98.4 67 18 135/86 (102) 05/13/19 01:05 96 05/12/19 20:57 Room Air Laboratory Data 24H Labs Laboratory Tests 2 05/12/19 17:00: Nucleated Red Blood Cells % (auto) 0.0, Anion Gap 8, Glomerular Filtration Rate > 60.0, Calcium Level 9.4, Aspartate Amino Transf (AST/SGOT) 55H, Alanine Aminotransferase (ALT/SGPT) 58, Alkaline Phosphatase 78, Total Bilirubin 0.3, Direct Bilirubin 0.1, Total Protein 6.9, Albumin 3.9, Albumin/Globulin Ratio 1.30, Thyroid Stimulating Hormone (TSH) 0.791, Salicylates Level 3.7L, Acetaminophen Level < 2.0L, Ethyl Alcohol Level 0.039H 05/12/19 19:04: Urine Amphetamines Screen NEGATIVE, Urine Benzodiazepines Screen NEGATIVE, Urine Opiates Screen NEGATIVE, Urine Methadone Screen NEGATIVE, Urine Barbiturates Screen NEGATIVE, Urine Phencyclidine Screen NEGATIVE, Urine Cocaine Metabolite Screen NEGATIVE, Urine Cannabinoids Screen POSITIVEH CBC/BMP Laboratory Tests 05/12/19 17:00 Red Blood Count 4.53, Mean Corpuscular Volume 94.7, Mean Corpuscular Hemoglobin 31.1, Mean Corpuscular Hemoglobin Concent 32.9, Red Cell Distribution Width 13.8 Medications Scheduled Fluoxetine Hcl (Fluoxetine HCl) 20 Mg Capsule, 20 MG PO BID, (Reported) Gabapentin (Gabapentin) 600 Mg Tablet, 600 MG PO TID, (Reported) Olanzapine (Zyprexa) 5 Mg Tablet, 5 MG PO QHS, (Reported) Trazodone HCl (Trazodone HCl) 50 Mg Tablet, 50 MG PO QHS, (Reported) Scheduled PRN Albuterol Sulfate (Ventolin Hfa) 18 Gm Hfa.aer.ad, 2 PUFF INH Q4H PRN for SHORTNESS OF BREATH, (Reported) Ibuprofen (Ibuprofen) 600 Mg Tablet, 600 MG PO TID PRN for PAIN, (Reported) Allergies Coded Allergies: No Known Allergies (Verified , 05/12/19) SHREYAS SIFUENTES DO May 13, 2019 11:34
[2019-05-13 18:32] VITALS: BP 140/84
[2019-05-13] MEDS: traZODone 50 MG TAB PO PRN (20:24)
[2019-05-13] MEDS: OLANZapine 5 MG TAB PO SCH (20:24)
[2019-05-14 06:37] VITALS: BP 126/76
[2019-05-14] MEDS: FLUoxetine 20 MG CAP PO SCH (08:10)
[2019-05-14] MEDS: GABAPENTIN 300 MG CAP PO SCH ×3 (08:10→21:22)
[2019-05-14] MEDS: IBUPROFEN 600 MG TAB PO PRN (12:13)
--- NOTE | 2019-05-14 12:20 | MHIPNPDOC ---
[facility] Progress Note Vital Signs Vital Signs Date Time Temp Pulse Resp B/P (MAP) Pulse Ox O2 Delivery O2 Flow Rate FiO2 05/14/19 06:37 98.0 57 12 126/76 (93) 05/13/19 01:05 96 05/12/19 20:57 Room Air Current Medications Current Medications Medications (Trade) Dose Ordered Sig/Luz Maria Route PRN Reason Start Time Stop Time Status Last Admin Dose Admin Al Hydrox/Mg Hydrox/Simethicone (Mylanta) 30 ml Q4HP PRN PO HEARTBURN/INDIGESTION 05/12/19 21:00 Albuterol Sulfate (Proventil, Ventolin Hfa) 2 puff Q4HP PRN INH SHORTNESS OF BREATH 05/12/19 21:00 Fluoxetine HCl (PROzac) 20 mg BID PO 05/12/19 21:00 05/13/19 19:50 DC 05/13/19 08:52 Fluoxetine HCl (PROzac) 40 mg BID PO 05/13/19 21:00 05/14/19 08:10 Gabapentin (Neurontin) 600 mg TID PO 05/12/19 21:00 05/14/19 08:10 Home Med (Med Rec Complete!) ASDIRECTED XX 05/12/19 20:45 05/12/19 20:50 DC Ibuprofen (Advil) 600 mg TIDP PRN PO MODERATE PAIN (PS 5-7) 05/12/19 21:00 05/14/19 12:13 Magnesium Hydroxide (Milk Of Magnesia) 30 ml DAILYPRN PRN PO CONSTIPATION 05/12/19 21:00 Olanzapine (ZyPREXA) 5 mg QHS PO 05/12/19 21:00 05/13/19 20:24 Trazodone HCl (Desyrel) 50 mg QHSP PRN PO INSOMNIA 05/12/19 21:00 05/13/19 20:24 Allergies Coded Allergies: No Known Allergies (Verified , 05/12/19) SHREYAS SIFUENTES DO May 14, 2019 12:20
--- NOTE | 2019-05-14 15:12 | MHIPNPDOC ---
[facility] Progress Note Progress Note Date of Service: 05/14/2019 History of Present Illness The patient is a 58-year-old man who presented to [facility] with suicidal thoughts. He notes that he has had difficulty with stable housing. He describes having difficulty with a codependent relationship with a woman he had been with for 17 years after the of his 19 years ago. He reports having increased depression, suicidal thoughts with a plan to overdose and loss of interest, fatigue and sadness. He reports having difficulty with a stable housing as the current person he is living with is going to rehab and he would not have significant options for housing. He reports being linked with DSS on his previous admission, but is worried about being sanctioned. He report significant anxiety and worry about his situation. However, he reported that when he had stayed away from his ex for one month and take his medications, he was functional and did very well. He reports that he has been trying to get social security as he does not have a source of income at this time and is unemployed. Interval History The patient is met with today. He reports that he is feeling somewhat improved but still ruminates significantly on his psychosocial stressors. He has not called the [facility] but appears generally non-motivated. No behavioral problems overnight. Continues to report difficulty with back pain, loss of interest, fatigue, and concentration problems. Review Of Systems As above. Reports some sedation since increased dose of Prozac to 40. Psychotherapy None on this visit. Vital Signs Reviewed. Mental Status Examination General: Fair. Speech: Spontaneous and fluid Thought processes: Pessimistic and hopeless. MSK: Smooth and coordinated gait, no signs of tremors or involuntary orofacial movements Thought content: Future orientated Abstract reasoning, and computation: Intact Description of associations: Intact Description of abnormal or psychotic thoughts: Denies any suicidal or homicidal ideation. Denies any auditory or visual hallucinations. Does not appear to be responding to internal stimuli. Does not appear to be endorsing any bizarre or paranoid ideation. Judgment: Poor. Insight: Poor Orientation: Alert and orientated 3 Cognition: Grossly normal Recent and remote memory: Intact Attention span and concentration: Intact Fund of knowledge: Adequate Mood: "Bad." Affect: Dysthymic with a constricted range. Diagnoses Unspecified depressive disorder. Rule out substance induced versus adjustment versus MDD. Alcohol use disorder, severe. Tobacco use disorder, severe. Cannabis use disorder, moderate. Assessment and Plan The patient appears to be making some mild progress. He does report some increased sedation, thus we'll reduce Prozac to 30 mg daily. Further monitoring and encouragement won't be needed. Disposition Patient will need a longer in-patient admission in order to stabilize his depression and plan a safer discharge. Time Spent 15 minutes [id number]. Thursday Vital Signs Vital Signs Date Time Temp Pulse Resp B/P (MAP) Pulse Ox O2 Delivery O2 Flow Rate FiO2 05/14/19 06:37 98.0 57 12 126/76 (93) 05/13/19 01:05 96 05/12/19 20:57 Room Air Current Medications Current Medications Medications (Trade) Dose Ordered Sig/Luz Maria Route PRN Reason Start Time Stop Time Status Last Admin Dose Admin Al Hydrox/Mg Hydrox/Simethicone (Mylanta) 30 ml Q4HP PRN PO HEARTBURN/INDIGESTION 05/12/19 21:00 Albuterol Sulfate (Proventil, Ventolin Hfa) 2 puff Q4HP PRN INH SHORTNESS OF BREATH 05/12/19 21:00 Fluoxetine HCl (PROzac) 20 mg BID PO 05/12/19 21:00 05/13/19 19:50 DC 05/13/19 08:52 Fluoxetine HCl (PROzac) 30 mg BID PO 05/14/19 21:00 Fluoxetine HCl (PROzac) 40 mg BID PO 05/13/19 21:00 05/14/19 12:20 DC 05/14/19 08:10 Gabapentin (Neurontin) 600 mg TID PO 05/12/19 21:00 05/14/19 08:10 Home Med (Med Rec Complete!) ASDIRECTED XX 05/12/19 20:45 05/12/19 20:50 DC Ibuprofen (Advil) 600 mg TIDP PRN PO MODERATE PAIN (PS 5-7) 05/12/19 21:00 05/14/19 12:13 Magnesium Hydroxide (Milk Of Magnesia) 30 ml DAILYPRN PRN PO CONSTIPATION 05/12/19 21:00 Olanzapine (ZyPREXA) 5 mg QHS PO 05/12/19 21:00 05/13/19 20:24 Trazodone HCl (Desyrel) 50 mg QHSP PRN PO INSOMNIA 05/12/19 21:00 05/13/19 20:24 Allergies Coded Allergies: No Known Allergies (Verified , 05/12/19) SHREYAS SIFUENTES DO May 14, 2019 15:12
[2019-05-14 18:00] VITALS: BP 103/63
[2019-05-14] MEDS: FLUoxetine 10 MG CAP PO SCH (21:22)
[2019-05-14] MEDS: OLANZapine 5 MG TAB PO SCH (21:22)
[2019-05-14] MEDS: traZODone 50 MG TAB PO PRN (21:22)
[2019-05-14] MEDS: ALBUTEROL 90 MCG/ACT 8GM HFA INHALER INH PRN (21:23)
[2019-05-15 06:47] VITALS: BP 122/65
[2019-05-15] MEDS: GABAPENTIN 300 MG CAP PO SCH ×3 (08:59→20:23)
[2019-05-15] MEDS: FLUoxetine 10 MG CAP PO SCH ×2 (08:59→20:23)
[2019-05-15] MEDS: IBUPROFEN 600 MG TAB PO PRN (14:15)
--- NOTE | 2019-05-15 17:54 | MHIPNPDOC ---
[facility] Progress Note Progress Note Date of Service: 05/15/2019 History of Present Illness The patient is a 58-year-old man who presented to [facility] with suicidal thoughts. He notes that he has had difficulty with stable housing. He describes having difficulty with a codependent relationship with a woman he had been with for 17 years after the of his 19 years ago. He reports having increased depression, suicidal thoughts with a plan to overdose and loss of interest, fatigue and sadness. He reports having difficulty with a stable housing as the current person he is living with is going to rehab and he would not have significant options for housing. He reports being linked with [facility] on his previous admission, but is worried about being sanctioned. He report significant anxiety and worry about his situation. However, he reported that when he had stayed away from his ex for one month and take his medications, he was functional and did very well. He reports that he has been trying to get social security as he does not have a source of income at this time and is unemployed. Interval History The patient is met with today. He describes that he feels "better" and he reports that at times he feels some pangs of losses. He worries about his cat. He describes that he is ambivalent about going tomorrow. He feels that he should as he needs to engage with his outpatient team, but that at other times he wonders if a longer stay would be helpful for him. He reports he's tolerating the 30 mg of Prozac well with no GI side effects, sedation or other concerning problems. He reports that his fatigue, loss of interest, concentration problems and hopelessness are all improving. Review Of Systems As above. Psychotherapy None on this visit. Vital Signs Reviewed. Mental Status Examination General: Well dressed with good hygiene Speech: Spontaneous and fluid Thought processes: Linear and logical MSK: Smooth and coordinated gait, no signs of tremors or involuntary orofacial movements Thought content: Future orientated Abstract reasoning, and computation: Intact Description of associations: Intact Description of abnormal or psychotic thoughts: Denies any suicidal or homicidal ideation. Denies any auditory or visual hallucinations. Does not appear to be responding to internal stimuli. Does not appear to be endorsing any bizarre or paranoid ideation. Judgment: fair Insight: fair Orientation: Alert and orientated 3 Cognition: Grossly normal Recent and remote memory: Intact Attention span and concentration: Intact Fund of knowledge: Adequate Mood: "okay" Affect: Euthymic with a full range Diagnoses Unspecified depressive disorder. Rule out substance induced versus adjustment versus MDD. Alcohol use disorder, severe. Tobacco use disorder, severe. Cannabis use disorder, moderate. Assessment and Plan The patient appears to be improving. Continue Prozac 30 mg daily with likely discharge tomorrow. Disposition ? Time Spent 15 minutes [id number]. Thursday Vital Signs Vital Signs Date Time Temp Pulse Resp B/P (MAP) Pulse Ox O2 Delivery O2 Flow Rate FiO2 05/15/19 06:47 97.9 71 14 122/65 (84) 05/13/19 01:05 96 05/12/19 20:57 Room Air Current Medications Current Medications Medications (Trade) Dose Ordered Sig/Luz Maria Route PRN Reason Start Time Stop Time Status Last Admin Dose Admin Al Hydrox/Mg Hydrox/Simethicone (Mylanta) 30 ml Q4HP PRN PO HEARTBURN/INDIGESTION 05/12/19 21:00 Albuterol Sulfate (Proventil, Ventolin Hfa) 2 puff Q4HP PRN INH SHORTNESS OF BREATH 05/12/19 21:00 05/14/19 21:23 Fluoxetine HCl (PROzac) 20 mg BID PO 05/12/19 21:00 05/13/19 19:50 DC 05/13/19 08:52 Fluoxetine HCl (PROzac) 30 mg BID PO 05/14/19 21:00 05/15/19 08:59 Fluoxetine HCl (PROzac) 40 mg BID PO 05/13/19 21:00 05/14/19 12:20 DC 05/14/19 08:10 Gabapentin (Neurontin) 600 mg TID PO 05/12/19 21:00 05/15/19 15:13 Home Med (Med Rec Complete!) ASDIRECTED XX 05/12/19 20:45 05/12/19 20:50 DC Ibuprofen (Advil) 600 mg TIDP PRN PO MODERATE PAIN (PS 5-7) 05/12/19 21:00 05/15/19 14:15 Magnesium Hydroxide (Milk Of Magnesia) 30 ml DAILYPRN PRN PO CONSTIPATION 05/12/19 21:00 Olanzapine (ZyPREXA) 5 mg QHS PO 05/12/19 21:00 05/14/19 21:22 Trazodone HCl (Desyrel) 50 mg QHSP PRN PO INSOMNIA 05/12/19 21:00 05/14/19 21:22 Allergies Coded Allergies: No Known Allergies (Verified , 05/12/19) SHREYAS SIFUENTES DO May 15, 2019 17:54
[2019-05-15 18:00] VITALS: BP 102/63
[2019-05-15] MEDS: OLANZapine 5 MG TAB PO SCH (20:23)
[2019-05-15] MEDS: ALBUTEROL 90 MCG/ACT 8GM HFA INHALER INH PRN (20:24)
[2019-05-15] MEDS: traZODone 50 MG TAB PO PRN (20:56)
[2019-05-16 06:41] VITALS: BP 110/69
[2019-05-16] MEDS: ALBUTEROL 90 MCG/ACT 8GM HFA INHALER INH PRN (09:00)
[2019-05-16] MEDS: GABAPENTIN 300 MG CAP PO SCH (09:00)
[2019-05-16] MEDS: FLUoxetine 10 MG CAP PO SCH (09:00)
[2019-05-16] MEDS ORDERED: FLUO10CA8 PO (11:58)
[2019-05-16] MEDS ORDERED: NICO7DIS30 TOP (11:59)
--- NOTE | 2019-05-16 14:42 | MHDSPDOC ---
[facility] Discharge Summary Discharge Summary DATE OF ADMISSION: May 12, 2019 at 20:59 DATE OF DISCHARGE: 05/16/19 Date of Service: 05/16/2019 Diagnoses Unspecified depressive disorder. Rule out substance induced versus adjustment versus MDD. Alcohol use disorder, severe. Tobacco use disorder, severe. Cannabis use disorder, moderate. History of Present Illness The patient is a 58-year-old man who presented to [facility] with suicidal thoughts. He notes that he has had difficulty with stable housing. He describes having difficulty with a codependent relationship with a woman he had been with for 17 years after the of his 19 years ago. He reports having increased depression, suicidal thoughts with a plan to overdose and loss of interest, fatigue and sadness. He reports having difficulty with a stable housing as the current person he is living with is going to rehab and he would not have significant options for housing. He reports being linked with [facility] on his previous admission, but is worried about being sanctioned. He report significant anxiety and worry about his situation. However, he reported that when he had stayed away from his ex for one month and take his medications, he was functional and did very well. He reports that he has been trying to get social security as he does not have a source of income at this time and is unemployed. Consultants Involved Hospitalist/PCP screening Treatment and Progress On The Unit The patient was admitted to the unit and subsequently assessed. He had redacted most of his suicidal ideation on presentation and it appeared that his situation was primarily due to stressors. Increased Prozac to 40 mg daily from 20 with some increased sedation, thus reduced to 30 mg, initially had been BID for a loading dose, however, the patient was discharged on 30 mg daily of Prozac. His gabapentin was unchanged. Trazodone was continued. The patient requested discharge on the following Thursday and at that time did not meet involuntary criteria as he was not demonstrating any threatening behavior towards himself or others and was attending to his needs on the unit and declined further voluntary admission, thus was discharged in good endy to [facility]. Discharge Assessment A 58-year-old man who has depression, previously admitted for suicidal overdose, but had presented with suicidal thoughts, significant stressors included codependent relationship and instability in his housing at this time. However, he recovers relatively well with removal of said stressors suggesting an adjustment disorder rather than a major depression. However, further assessment as an outpatient will likely be needed to come to a more comprehensive diagnosis. Mental Status Examination General: Well dressed with good hygiene Speech: Spontaneous and fluid Thought processes: Linear and logical MSK: Smooth and coordinated gait, no signs of tremors or involuntary orofacial movements Thought content: Future orientated Abstract reasoning, and computation: Intact Description of associations: Intact Description of abnormal or psychotic thoughts: Denies any suicidal or homicidal ideation. Denies any auditory or visual hallucinations. Does not appear to be responding to internal stimuli. Does not appear to be endorsing any bizarre or paranoid ideation. Judgment: fair Insight: fair Orientation: Alert and orientated 3 Cognition: Grossly normal Recent and remote memory: Intact Attention span and concentration: Intact Fund of knowledge: Adequate Mood: "okay" Affect: Euthymic with a full range Follow Up The social work team worked during the predischarge meeting in order to evaluate for further issues of lethality address them fully before discharge. They worked on safety planning with the patient's family members in order to ensure that the patient will have a safe and effective discharge. Time Spent The amount of time spent in the coordination of care for this patient was approximately 30 minutes. Thursday Vital Signs/I&Os Vital Signs Date Time Temp Pulse Resp B/P (MAP) Pulse Ox O2 Delivery O2 Flow Rate FiO2 05/16/19 06:41 98.4 72 12 110/69 (83) 05/13/19 01:05 96 05/12/19 20:57 Room Air Medications Scheduled Fluoxetine Hcl (Fluoxetine HCl) 10 Mg Capsule, 30 MG PO DAILY for mood for 7 Days, #21 Gabapentin (Gabapentin) 600 Mg Tablet, 600 MG PO TID, (Reported) Nicotine (Nicotine Patch) 7 Mg/24 Hr Patch.td24, 1 PATCH TOP DAILY for smoking cessation for 30 Days, #30 Scheduled PRN Albuterol Sulfate (Ventolin Hfa) 18 Gm Hfa.aer.ad, 2 PUFF INH Q4H PRN for SHORTNESS OF BREATH, (Reported) Ibuprofen (Ibuprofen) 600 Mg Tablet, 600 MG PO TID PRN for PAIN, (Reported) Allergies Coded Allergies: No Known Allergies (Verified , 05/12/19) SHREYAS SIFUENTES DO May 16, 2019 14:42
== END 2019-05-16 13:29 | disposition home or self-care (01) | DRG 754 ==
LOC: M ED 15:44 → M ED INP 20:59 → M PSY 05-13 00:55
PROVIDERS: ADMIT Psychiatry & Neurology Psychiatry; ATTEND Psychiatry & Neurology Addiction Medicine
DX: F32.9 Major depressive disorder, single episode, unspecified (principal); F43.20 Adjustment disorder, unspecified; F10.24 Alcohol dependence with alcohol-induced mood disorder; F12.20 Cannabis dependence, uncomplicated; F17.200 Nicotine dependence, unspecified, uncomplicated; Z79.899 Other long term (current) drug therapy

== ENCOUNTER 2019-05-18 21:05 | Inpatient (IN) | payer MEDICAID, OTHER ==
[~2019-05-18] VITALS: Ht 172.7 cm; Wt 58.6 kg
[~2019-05-18 21:05] MED LIST changes: +CHOL100029 PO; +FLUO10CA8 PO; +NICO7DIS30 TOP; -VITAD1000T PO
[2019-05-18 21:28] LABS: HEMATOCRIT 43.2 % (42.0-52.0); HEMOGLOBIN 14.3 g/dl (13.5-17.5); MEAN CORPUSCULAR HEMOGLOBIN 30.8 pg (27.0-33.0); MEAN CORPUSCULAR HGB CONC 33.1 g/dl (32.0-36.5); MEAN CORPUSCULAR VOLUME 92.9 fl (80.0-96.0); PLATELET COUNT, AUTOMATED 283 10^3/uL (150-450); RED BLOOD COUNT 4.65 10^6/uL (4.30-6.10); WHITE BLOOD COUNT 11.1 10^3/uL (4.0-10.0)
[2019-05-18 21:49] LABS: AMPHETAMINES LEVEL URINE NEGATIVE (NEGATIVE); BARBITURATES URINE NEGATIVE (NEGATIVE); BENZODIAZEPINES URINE NEGATIVE (NEGATIVE); CANNABINOIDS URINE NEGATIVE (NEGATIVE); COCAINE METABOLITE URINE NEGATIVE (NEGATIVE); METHADONE URINE NEGATIVE (NEGATIVE); OPIATES URINE NEGATIVE (NEGATIVE); PHENCYCLIDINE URINE NEGATIVE (NEGATIVE)
[2019-05-18 22:04] LABS: ACETAMINOPHEN LEVEL < 2.0 UG/ML (10.0-30.0); ALBUMIN 4.1 GM/DL (3.2-5.2); ALT/SGPT 56 U/L (12-78); BILIRUBIN,DIRECT < 0.1 MG/DL (0.0-0.2); BILIRUBIN,TOTAL 0.2 MG/DL (0.2-1.0); BLOOD UREA NITROGEN 18 MG/DL (7-18); CALCIUM LEVEL 9.4 MG/DL (8.5-10.1); CARBON DIOXIDE LEVEL 26 MEQ/L (21-32); CHLORIDE LEVEL 108 MEQ/L (98-107); CREATININE FOR GFR 0.94 MG/DL (0.70-1.30); ETHYL ALCOHOL (ETHANOL) 0.203 % (0.000-0.010); GLOMERULAR FILTRATION RATE > 60.0 (>56); GLUCOSE, FASTING 85 MG/DL (70-100); POTASSIUM SERUM 4.2 MEQ/L (3.5-5.1); SALICYLATE LEVEL 3.9 MG/DL (5.0-30.0); SODIUM LEVEL 141 MEQ/L (136-145); TOTAL PROTEIN 7.6 GM/DL (6.4-8.2)
[2019-05-19] MEDS ORDERED: FLUoxetine 10 MG CAP PO ONE (10:00)
[2019-05-19] MEDS ORDERED: GABAPENTIN 300 MG CAP PO ONE (10:00)
[2019-05-19] MEDS ORDERED: traZODone 50 MG TAB PO PRN (10:30)
[2019-05-19] MEDS ORDERED: MOM 30ML SUSPENSION UDC PO PRN (10:30)
[2019-05-19] MEDS ORDERED: IBUPROFEN 400 MG TAB PO PRN (10:30)
[2019-05-19] MEDS ORDERED: MAALOX 30 ML SUSP *UDC PO PRN (10:30)
[2019-05-19] MEDS ORDERED: FLUO20CA19 PO (11:31)
[2019-05-19] MEDS ORDERED: OLAN5TAB PO (11:31)
[2019-05-19] MEDS ORDERED: TRAZ1TAB10 PO (11:31)
[2019-05-19 11:55] VITALS: BP 155/89
[2019-05-19] MEDS ORDERED: ALBUTEROL 90 MCG/ACT 8GM HFA INHALER INH PRN (12:45)
[2019-05-19] MEDS: NICOTINE 21MG/24HR 1 EA TRANSDERMAL TD SCH (15:21)
[2019-05-19] MEDS: GABAPENTIN 300 MG CAP PO SCH ×2 (15:21→20:12)
[2019-05-19 18:00] VITALS: BP 138/87
[2019-05-19] MEDS: FLUoxetine 10 MG CAP PO SCH (20:12)
[2019-05-20 06:44] VITALS: BP 131/80
[2019-05-20] MEDS: GABAPENTIN 300 MG CAP PO SCH (08:18)
[2019-05-20] MEDS: FLUoxetine 10 MG CAP PO SCH (08:18)
[2019-05-20] MEDS: NICOTINE 21MG/24HR 1 EA TRANSDERMAL TD SCH (08:19)
[2019-05-20 08:33] VITALS: BP 131/80
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
== END 2019-05-20 14:17 | disposition home or self-care (01) | DRG 751 ==
LOC: M ED 21:05 → M ED INP 05-19 10:22 → M PSY 05-19 11:50
PROVIDERS: ADMIT Psychiatry & Neurology Addiction Medicine; ATTEND Psychiatry & Neurology Addiction Medicine
DX: F32.5 Major depressive disorder, single episode, in full remission (principal); F41.9 Anxiety disorder, unspecified; F10.229 Alcohol dependence with intoxication, unspecified; F17.200 Nicotine dependence, unspecified, uncomplicated; M54.5 Low back pain; F12.20 Cannabis dependence, uncomplicated; F10.24 Alcohol dependence with alcohol-induced mood disorder; G40.909 Epilepsy, unspecified, not intractable, without status epilepticus; Z87.820 Personal history of traumatic brain injury; Z86.010 Personal history of colon polyps; H54.62 Unqualified visual loss, left eye, normal vision right eye; Z79.899 Other long term (current) drug therapy

== ENCOUNTER 2019-05-24 10:55 | Inpatient (IN) | payer MEDICAID, OTHER ==
[~2019-05-24] VITALS: Ht 172.7 cm; Wt 61.4 kg
[~2019-05-24 10:55] MED LIST changes: +OLAN5TAB PO
[2019-05-24] MEDS ORDERED: OLAN5TAB PO (11:00)
[2019-05-24 11:29] LABS: HEMATOCRIT 44.4 % (42.0-52.0); HEMOGLOBIN 14.8 g/dl (13.5-17.5); MEAN CORPUSCULAR HEMOGLOBIN 31.7 pg (27.0-33.0); MEAN CORPUSCULAR HGB CONC 33.3 g/dl (32.0-36.5); MEAN CORPUSCULAR VOLUME 95.1 fl (80.0-96.0); PLATELET COUNT, AUTOMATED 281 10^3/uL (150-450); RED BLOOD COUNT 4.67 10^6/uL (4.30-6.10); WHITE BLOOD COUNT 11.4 10^3/uL (4.0-10.0)
[2019-05-24 12:08] LABS: ACETAMINOPHEN LEVEL < 2.0 UG/ML (10.0-30.0); ALBUMIN 3.9 GM/DL (3.2-5.2); ALT/SGPT 53 U/L (12-78); BILIRUBIN,DIRECT < 0.1 MG/DL (0.0-0.2); BILIRUBIN,TOTAL 0.2 MG/DL (0.2-1.0); BLOOD UREA NITROGEN 11 MG/DL (7-18); CALCIUM LEVEL 8.9 MG/DL (8.5-10.1); CARBON DIOXIDE LEVEL 29 MEQ/L (21-32); CHLORIDE LEVEL 105 MEQ/L (98-107); CREATININE FOR GFR 0.88 MG/DL (0.70-1.30); ETHYL ALCOHOL (ETHANOL) 0.182 % (0.000-0.010); GLOMERULAR FILTRATION RATE > 60.0 (>56); GLUCOSE, FASTING 95 MG/DL (70-100); POTASSIUM SERUM 4.4 MEQ/L (3.5-5.1); SALICYLATE LEVEL 3.6 MG/DL (5.0-30.0); SODIUM LEVEL 140 MEQ/L (136-145); TOTAL PROTEIN 7.1 GM/DL (6.4-8.2)
[2019-05-24 12:33] LABS: AMPHETAMINES LEVEL URINE NEGATIVE (NEGATIVE); BARBITURATES URINE NEGATIVE (NEGATIVE); BENZODIAZEPINES URINE NEGATIVE (NEGATIVE); CANNABINOIDS URINE POSITIVE (NEGATIVE); COCAINE METABOLITE URINE NEGATIVE (NEGATIVE); METHADONE URINE NEGATIVE (NEGATIVE); OPIATES URINE NEGATIVE (NEGATIVE); PHENCYCLIDINE URINE NEGATIVE (NEGATIVE)
[2019-05-25] MEDS ORDERED: FLUoxetine 20 MG CAP PO ONE (08:30)
[2019-05-25] MEDS ORDERED: GABAPENTIN 300 MG CAP PO ONE (08:30)
[2019-05-25] MEDS ORDERED: FLUoxetine 10 MG CAP PO SCH (09:00)
[2019-05-25] MEDS ORDERED: FLUO10CA8 PO (11:39)
[2019-05-25] MEDS ORDERED: IBUPROFEN 400 MG TAB PO PRN (14:15)
[2019-05-25] MEDS ORDERED: MAALOX 30 ML SUSP *UDC PO PRN (15:00)
[2019-05-25] MEDS ORDERED: MOM 30ML SUSPENSION UDC PO PRN (15:00)
[2019-05-25] MEDS ORDERED: LORazepam 2 MG TAB PO PRN (15:00)
[2019-05-25] MEDS: MULTIVITAMINS/MINERALS THERAP 1 TAB PO SCH (17:05)
[2019-05-25] MEDS: FOLIC ACID 1 MG TAB PO SCH (17:05)
[2019-05-25] MEDS: GABAPENTIN 300 MG CAP PO SCH ×2 (17:05→20:23)
[2019-05-25] MEDS: THIAMINE 100 MG TAB PO SCH (20:22)
[2019-05-25] MEDS: FLUoxetine 10 MG CAP PO SCH (20:23)
[2019-05-25] MEDS: traZODone 50 MG TAB PO SCH (20:23)
[2019-05-25] MEDS: OLANZapine 5 MG TAB PO SCH (20:23)
[2019-05-26 06:52] VITALS: BP 137/72
[2019-05-26] MEDS: FOLIC ACID 1 MG TAB PO SCH (08:26)
[2019-05-26] MEDS: MULTIVITAMINS/MINERALS THERAP 1 TAB PO SCH (08:26)
[2019-05-26] MEDS: NICOTINE 21MG/24HR 1 EA TRANSDERMAL TD SCH (08:27)
[2019-05-26] MEDS: GABAPENTIN 300 MG CAP PO SCH ×3 (08:27→20:18)
[2019-05-26] MEDS: THIAMINE 100 MG TAB PO SCH ×2 (08:27→20:18)
[2019-05-26] MEDS: ALBUTEROL 90 MCG/ACT 8GM HFA INHALER INH PRN (09:09)
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
[2019-05-26 17:27] VITALS: BP 124/84
[2019-05-26] MEDS: IBUPROFEN 600 MG TAB PO PRN (18:03)
[2019-05-26 19:14] VITALS: BP 119/76
[2019-05-26] MEDS: FLUoxetine 10 MG CAP PO SCH (20:18)
[2019-05-26] MEDS: OLANZapine 5 MG TAB PO SCH (20:18)
[2019-05-26] MEDS: traZODone 50 MG TAB PO SCH (20:18)
[2019-05-27 06:51] VITALS: BP 142/85
[2019-05-27 07:30] VITALS: BP 142/85
[2019-05-27] MEDS: NICOTINE 21MG/24HR 1 EA TRANSDERMAL TD SCH (08:11)
[2019-05-27] MEDS: GABAPENTIN 300 MG CAP PO SCH ×3 (08:12→20:19)
[2019-05-27] MEDS: FOLIC ACID 1 MG TAB PO SCH (08:12)
[2019-05-27] MEDS: MULTIVITAMINS/MINERALS THERAP 1 TAB PO SCH (08:12)
[2019-05-27] MEDS: THIAMINE 100 MG TAB PO SCH ×2 (08:12→20:19)
[2019-05-27] MEDS: IBUPROFEN 600 MG TAB PO PRN (08:12)
--- NOTE | 2019-05-27 11:02 | MHIPNPDOC ---
[facility] Progress Note Progress Note Date of Service: 05/27/2019 History of Present Illness The patient a 58-year-old man who had represented shortly after being discharged describe that he had started drinking after he left as he became stressed out and reportedly had little support. He was kicked out of his housing that he had been living in with a friend and describe that he began to then seek out alcohol and drink himself into a depression. He reports that he subsequently lost his cat and the majority of his possessions. He came into the ER suicidal. After resolution of his symptoms, he became less intoxicated, but still endorsed suicidality and depression. The patient is met with today with the finished goods planner, Mignon of which he appears pre-contemplative about rehab and describes that he "just needs to go to [facility]." He describes that his sole focus is on attempting to get back together with his ex-girlfriend. Psychosocial information below is extracted from previous H&P from last presentation and updated with patient. Interval History The patient's met with today. He reports that his depression is "better." He still remains fairly isolative. He does sit around others, but rarely speaks. He does attend groups, but rarely engages. After discussion with the patient, he reports that he does have significant social anxiety and that drinking is a p rimary way that he can socialize. He describes that he's still not interested in rehab and feels that it would not be helpful due to his anxiety. He was interested in trying some medication for his social anxiety that might be able to help him perform better. He was open to signing a referral for [facility] as he is currently homeless. Review Of Systems Denies any side effects from his Prozac, such as GI upset, nausea, vomiting, constipation, tremors, headaches or other discomfort. Psychotherapy None on this visit. Vital Signs Reviewed. Mental Status Examination General: Well dressed with good hygiene Speech: Spontaneous and fluid Thought processes: Linear and logical MSK: Smooth and coordinated gait, no signs of tremors or involuntary orofacial movements Thought content: Hopeless and pessimistic. Abstract reasoning, and computation: Intact Description of associations: Intact Description of abnormal or psychotic thoughts: Denies any suicidal or homicidal ideation. Denies any auditory or visual hallucinations. Does not appear to be responding to internal stimuli. Does not appear to be endorsing any bizarre or paranoid ideation. Judgment: Poor. Insight: Poor. Orientation: Alert and orientated 3 Cognition: Grossly normal Recent and remote memory: Intact Attention span and concentration: Intact Fund of knowledge: Adequate Mood: "okay" Affect: Dysthymic with a constricted range. Diagnoses Unspecified depressive disorder, active. Highly likely to be substance-induced. Alcohol use disorder, severe. Tobacco use disorder, severe. Cannabis use disorder, moderate. Assessment and Plan Continue patient's Prozac 30 mg BID. He was erroneously put on 30 mg nightly. He reports that he takes it 30 mg BID at home. We'll start the patient on 10 mg of Serax. Discussed the risks, benefits, and potential side effects as a trial to see if his social anxiety improves. Discussed with him that this medication would never be able to be used with alcohol. However, if it improves his social functioning, it would be a good test to determine if this is a fruitful area to explore for his treatment. Disposition The patient will need a further inpatient admission as he still demonstrates very poor insight into his depression, suicidality and alcohol use, which makes him a very high chance for readmission and suicide at this time. Time Spent 15 minutes [id number] Thursday Vital Signs Vital Signs Date Time Temp Pulse Resp B/P (MAP) Pulse Ox O2 Delivery O2 Flow Rate FiO2 05/27/19 06:51 98.2 62 16 142/85 (104) 05/25/19 15:22 96 Room Air Current Medications Current Medications Medications (Trade) Dose Ordered Sig/Luz Maria Route PRN Reason Start Time Stop Time Status Last Admin Dose Admin Al Hydrox/Mg Hydrox/Simethicone (Mylanta) 30 ml Q4HP PRN PO HEARTBURN/INDIGESTION 05/25/19 15:00 Albuterol Sulfate (Proventil, Ventolin Hfa) 2 puff Q4HP PRN INH SHORTNESS OF BREATH 05/26/19 09:15 05/26/19 09:09 Fluoxetine HCl (PROzac) 30 mg QHS PO 05/25/19 09:00 05/25/19 17:03 DC Fluoxetine HCl (PROzac) 30 mg QHS PO 05/25/19 21:00 05/26/19 20:18 Folic Acid (Folic Acid) 1 mg DAILY PO 05/25/19 09:00 05/27/19 08:12 Gabapentin (Neurontin) 600 mg TID PO 05/25/19 16:00 05/27/19 08:12 Home Med (Med Rec Complete!) ASDIRECTED XX 05/25/19 11:45 05/25/19 11:45 DC Ibuprofen (Advil) 400 mg Q6HP PRN PO PAIN 05/25/19 14:15 Ibuprofen (Advil) 600 mg TIDP PRN PO DISCOMFORT 05/25/19 14:15 05/27/19 08:12 Lorazepam (Ativan) 2 mg ASDIRECTED PRN PO SEE PROTOCOL 05/25/19 15:00 Magnesium Hydroxide (Milk Of Magnesia) 30 ml DAILYPRN PRN PO CONSTIPATION 05/25/19 15:00 Multivitamins (Theragram-M) 1 tab DAILY PO 05/25/19 09:00 05/27/19 08:12 Nicotine (Nicoderm Cq 21mg) 1 patch DAILY TD 05/26/19 09:00 Olanzapine (ZyPREXA) 5 mg QHS PO 05/25/19 21:00 05/26/19 20:18 Thiamine HCl (Thiamine HCl) 100 mg BID PO 05/25/19 21:00 05/28/19 20:59 05/27/19 08:12 Trazodone HCl (Desyrel) 50 mg QHS PO 05/25/19 21:00 05/26/19 20:18 Allergies Coded Allergies: No Known Allergies (Verified , 05/19/19) SHREYAS SIFUENTES DO May 27, 2019 11:02
[2019-05-27] MEDS ORDERED: OXAZEPAM 10 MG CAP PO ONE (12:00)
[2019-05-27] MEDS: FLUoxetine 10 MG CAP PO SCH ×2 (12:13→20:19)
[2019-05-27 18:12] VITALS: BP 110/70
[2019-05-27] MEDS: traZODone 50 MG TAB PO SCH (20:19)
[2019-05-27] MEDS: OLANZapine 5 MG TAB PO SCH (20:19)
[2019-05-28 06:09] VITALS: BP 147/67
[2019-05-28] MEDS: NICOTINE 21MG/24HR 1 EA TRANSDERMAL TD SCH (08:09)
[2019-05-28] MEDS: MULTIVITAMINS/MINERALS THERAP 1 TAB PO SCH (08:12)
[2019-05-28] MEDS: THIAMINE 100 MG TAB PO SCH (08:12)
[2019-05-28] MEDS: OXAZEPAM 10 MG CAP PO SCH (08:12)
[2019-05-28] MEDS: FLUoxetine 10 MG CAP PO SCH ×2 (08:12→20:32)
[2019-05-28] MEDS: FOLIC ACID 1 MG TAB PO SCH (08:12)
[2019-05-28] MEDS: GABAPENTIN 300 MG CAP PO SCH ×3 (08:13→20:32)
[2019-05-28 16:25] VITALS: BP 104/67
[2019-05-28] MEDS: traZODone 50 MG TAB PO SCH (20:32)
[2019-05-28] MEDS: OLANZapine 5 MG TAB PO SCH (20:32)
[2019-05-28] MEDS: ALBUTEROL 90 MCG/ACT 8GM HFA INHALER INH PRN (20:34)
--- NOTE | 2019-05-28 22:02 | MHIPN ---
DATE: 05/28/2019 The patient today states "I am not too bad." He says that he slept good. He is not feeling suicidal. MENTAL STATUS EXAMINATION: This patient is alert and oriented times three. Eye contact is fair. Psychomotor activity is normal. There is no formal thought disorder noted. He says his mood is "not too bad." Affect is constricted but appropriate to mood. He is not psychotic, suicidal or homicidal. Concentration is fair. Memory intact. Insight and judgment fair. DIAGNOSES: 1. Unspecified depressive disorder, possibly due to substance induced. 2. Alcohol use disorder, severe. 3. Cannabis use disorder, moderate. TREATMENT PLAN: At this point, we will continue to monitor for further elevation and stabilization of his mood and for continued resolution of any suicidal ideation.
[2019-05-29 06:46] VITALS: BP 116/68
[2019-05-29] MEDS: NICOTINE 21MG/24HR 1 EA TRANSDERMAL TD SCH (08:03)
[2019-05-29] MEDS: FOLIC ACID 1 MG TAB PO SCH (08:05)
[2019-05-29] MEDS: FLUoxetine 10 MG CAP PO SCH ×2 (08:05→20:14)
[2019-05-29] MEDS: MULTIVITAMINS/MINERALS THERAP 1 TAB PO SCH (08:05)
[2019-05-29] MEDS: GABAPENTIN 300 MG CAP PO SCH ×3 (08:05→20:14)
[2019-05-29] MEDS: OXAZEPAM 10 MG CAP PO SCH (08:06)
[2019-05-29 16:36] VITALS: BP 117/73
--- NOTE | 2019-05-29 17:30 | MHIPN ---
DATE: 05/29/2019 The patient today states that he is doing "pretty good." He says that he is getting better every day. He said that he did have some nightmares last night but they are unusual. MENTAL STATUS EXAMINATION: The patient is alert and oriented times three. He is pleasant, cooperative, verbally spontaneous. There is no formal thought disorder noted. Eye contact is good. Mood is good. Affect is full range and appropriate. He is not psychotic, suicidal or homicidal. Concentration is fair. Memory intact. Insight and judgment fair. DIAGNOSES: 1. Unspecified depressive disorder. 2. Rule out substance induced. 3. Alcohol use disorder, severe. 4. Cannabis use disorder, moderate. TREATMENT PLAN: We will continue to further monitor the patient for continued elevation and stabilization of his mood and continued resolution of suicidal ideation.
[2019-05-29] MEDS: traZODone 50 MG TAB PO SCH (20:14)
[2019-05-29] MEDS: OLANZapine 5 MG TAB PO SCH (20:14)
[2019-05-29] MEDS: ALBUTEROL 90 MCG/ACT 8GM HFA INHALER INH PRN (20:14)
[2019-05-30 06:43] VITALS: BP 108/62
[2019-05-30] MEDS: NICOTINE 21MG/24HR 1 EA TRANSDERMAL TD SCH (08:31)
[2019-05-30] MEDS: FOLIC ACID 1 MG TAB PO SCH (08:33)
[2019-05-30] MEDS: GABAPENTIN 300 MG CAP PO SCH ×3 (08:33→20:12)
[2019-05-30] MEDS: OXAZEPAM 10 MG CAP PO SCH (08:33)
[2019-05-30] MEDS: FLUoxetine 10 MG CAP PO SCH ×2 (08:33→20:11)
[2019-05-30] MEDS: ALBUTEROL 90 MCG/ACT 8GM HFA INHALER INH PRN ×2 (08:33→20:18)
[2019-05-30] MEDS: MULTIVITAMINS/MINERALS THERAP 1 TAB PO SCH (08:34)
--- NOTE | 2019-05-30 09:49 | MHIPNPDOC ---
[facility] Progress Note Progress Note Date of Service: 05/30/2019 History of Present Illness The patient a 58-year-old man who had represented shortly after being discharged describe that he had started drinking after he left as he became stressed out and reportedly had little support. He was kicked out of his housing that he had been living in with a friend and describe that he began to then seek out alcohol and drink himself into a depression. He reports that he subsequently lost his cat and the majority of his possessions. He came into the ER suicidal. After resolution of his symptoms, he became less intoxicated, but still endorsed suicidality and depression. The patient is met with today with the traffic and transport planner, Mignon of which he appears pre-contemplative about rehab and describes that he "just needs to go to [facility]." He describes that his sole focus is on attempting to get back together with his ex-girlfriend. Psychosocial information below is extracted from previous H&P from last presentation and updated with patient. Interval History The patient has met with briefly today. He reports that the Serax is quite helpful for his anxiety, staff as well as his provider have noticed him more social, sitting in groups, talking to others of which he reported in the past he would not because of significant anxiety around others. He reports being open to trying naltrexone, Vivitrol would be an ideal solution for the patient, discussed with patient he would need to. He declines rehab despite TLS insistence on it. For engagement in their services he will likely need to do rehab for [facility] service as well. However, the patient does not wish to consider this as he reports that he does not like rehab due to the social problems. He reports that the [facility] has been treating him well. He reports that his hopelessness is improving. His fatigue is improving. Denies any headaches, dry mouth, chest pain, palpitations, shortness of breath, GI upset, nausea, vomiting, constipation, tremors or any other concerning side effects. Denies over sedation from the Serax. Reports no other concerning side effects. No behavioral problems overnight, generally amenable to nursing staff. Review Of Systems As above. Psychotherapy None on this visit. Vital Signs Reviewed. Mental Status Examination General: Well dressed with good hygiene Speech: Spontaneous and fluid Thought processes: Linear and logical MSK: Smooth and coordinated gait, no signs of tremors or involuntary orofacial movements Thought content: Hopeless and pessimistic. Abstract reasoning, and computation: Intact Description of associations: Intact Description of abnormal or psychotic thoughts: Denies any suicidal or homicidal ideation. Denies any auditory or visual hallucinations. Does not appear to be responding to internal stimuli. Does not appear to be endorsing any bizarre or paranoid ideation. Judgment: Poor. Insight: Poor. Orientation: Alert and orientated 3 Cognition: Grossly normal Recent and remote memory: Intact Attention span and concentration: Intact Fund of knowledge: Adequate Mood: "okay" Affect: Dysthymic with a constricted range. Diagnoses Unspecified depressive disorder, active. Highly likely to be substance-induced. Alcohol use disorder, severe. Tobacco use disorder, severe. Cannabis use disorder, moderate. Assessment and Plan The patient is open to receiving Vivitrol, sent script to [facility] of which they will deliver tomorrow. The patient's alcohol appears to be a primary reason why he presents. He still appears quite dysthymic despite denying any suicidal thoughts. However, his constant representation, especially in the context of alcohol use, will be shanks to address in order to assure a long-lasting discharge. He additionally has fallen significantly in terms of his psychosocial status and his risk factors for suicide continue to grow despite his imminent lack of suicidal thinking. Discussed the risks, benefits and potential side effects of Vivitrol as well as alternative treatments. Patient continues to decline rehab. Disposition We'll continue inpatient admission to give Vivitrol. Patient appears okay to stay longer. However, will need better discharge plan with Vivitrol as this will hopefully give patient a better ability to stay sober and thus be less likely to be readmitted. Time Spent 15 minutes face to face. Thursday Vital Signs Vital Signs Date Time Temp Pulse Resp B/P (MAP) Pulse Ox O2 Delivery O2 Flow Rate FiO2 05/30/19 06:43 96.9 85 12 108/62 (77) 05/25/19 15:22 96 Room Air Current Medications Current Medications Medications (Trade) Dose Ordered Sig/Luz Maria Route PRN Reason Start Time Stop Time Status Last Admin Dose Admin Al Hydrox/Mg Hydrox/Simethicone (Mylanta) 30 ml Q4HP PRN PO HEARTBURN/INDIGESTION 05/25/19 15:00 Albuterol Sulfate (Proventil, Ventolin Hfa) 2 puff Q4HP PRN INH SHORTNESS OF BREATH 05/26/19 09:15 05/30/19 08:33 Fluoxetine HCl (PROzac) 30 mg BID PO 05/27/19 09:00 05/30/19 08:33 Fluoxetine HCl (PROzac) 30 mg QHS PO 05/25/19 09:00 05/25/19 17:03 DC Fluoxetine HCl (PROzac) 30 mg QHS PO 05/25/19 21:00 05/27/19 11:54 DC 05/26/19 20:18 Folic Acid (Folic Acid) 1 mg DAILY PO 05/25/19 09:00 05/30/19 08:33 Gabapentin (Neurontin) 600 mg TID PO 05/25/19 16:00 05/30/19 08:33 Home Med (Med Rec Complete!) ASDIRECTED XX 05/25/19 11:45 05/25/19 11:45 DC Ibuprofen (Advil) 400 mg Q6HP PRN PO PAIN 05/25/19 14:15 05/27/19 11:30 DC Ibuprofen (Advil) 600 mg TIDP PRN PO DISCOMFORT 05/25/19 14:15 05/27/19 08:12 Lorazepam (Ativan) 2 mg ASDIRECTED PRN PO SEE PROTOCOL 05/25/19 15:00 Magnesium Hydroxide (Milk Of Magnesia) 30 ml DAILYPRN PRN PO CONSTIPATION 05/25/19 15:00 Multivitamins (Theragram-M) 1 tab DAILY PO 05/25/19 09:00 05/30/19 08:34 Nicotine (Nicoderm Cq 21mg) 1 patch DAILY TD 05/26/19 09:00 Olanzapine (ZyPREXA) 5 mg QHS PO 05/25/19 21:00 05/29/19 20:14 Oxazepam (Serax) 10 mg DAILY PO 05/28/19 09:00 05/30/19 08:33 Thiamine HCl (Thiamine HCl) 100 mg BID PO 05/25/19 21:00 05/28/19 20:59 DC 05/28/19 08:12 Trazodone HCl (Desyrel) 50 mg QHS PO 05/25/19 21:00 05/29/19 20:14 Allergies Coded Allergies: No Known Allergies (Verified , 05/19/19) SHREYAS SIFUENTES DO May 30, 2019 09:49
[2019-05-30] MEDS ORDERED: VIVI380I IM (11:57)
[2019-05-30] MEDS ORDERED: NALTREXONE 50 MG TAB PO ONE (13:00)
[2019-05-30 15:43] VITALS: BP 108/68
[2019-05-30] MEDS: OLANZapine 5 MG TAB PO SCH (20:11)
[2019-05-30] MEDS: traZODone 50 MG TAB PO SCH (20:11)
[2019-05-30] MEDS: IBUPROFEN 600 MG TAB PO PRN (20:13)
[2019-05-31 07:00] VITALS: BP 113/77
[2019-05-31] MEDS: FLUoxetine 10 MG CAP PO SCH ×2 (08:07→20:32)
[2019-05-31] MEDS: GABAPENTIN 300 MG CAP PO SCH ×3 (08:07→20:32)
[2019-05-31] MEDS: MULTIVITAMINS/MINERALS THERAP 1 TAB PO SCH (08:07)
[2019-05-31] MEDS: OXAZEPAM 10 MG CAP PO SCH (08:07)
[2019-05-31] MEDS: FOLIC ACID 1 MG TAB PO SCH (08:07)
[2019-05-31] MEDS: NALTREXONE 50 MG TAB PO SCH (08:07)
[2019-05-31] MEDS: ALBUTEROL 90 MCG/ACT 8GM HFA INHALER INH PRN ×2 (08:07→20:32)
[2019-05-31] MEDS: NICOTINE 21MG/24HR 1 EA TRANSDERMAL TD SCH (08:08)
--- NOTE | 2019-05-31 10:45 | MHIPNPDOC ---
[facility] Progress Note Progress Note Date of Service: 05/31/2019 History of Present Illness The patient a 58-year-old man who had represented shortly after being discharged describe that he had started drinking after he left as he became stressed out and reportedly had little support. He was kicked out of his housing that he had been living in with a friend and describe that he began to then seek out alcohol and drink himself into a depression. He reports that he subsequently lost his cat and the majority of his possessions. He came into the ER suicidal. After resolution of his symptoms, he became less intoxicated, but still endorsed suicidality and depression. The patient is met with today with the production planner, Mignon of which he appears pre-contemplative about rehab and describes that he "just needs to go to [facility]." He describes that his sole focus is on attempting to get back together with his ex-girlfriend. Psychosocial information below is extracted from previous H&P from last presentation and updated with patient. Interval History The patient was met with today and reports that he is doing well. His depression has improved with only some mild low mood left, hopelessness, guilt, fatigue, loss of interest have all improved. He reports he tolerated the naltrexone injectable quite well and has only had some mild soreness at the injection site with no other side effects. Denies chest pain, palpitations, shortness of breath, cough, dizziness, dry mouth, tremors, GI side effects, nausea, vomiting, constipation. He reports that he is feeling ready for discharge tomorrow and wishes to go. Review Of Systems As above. Psychotherapy None on this visit. Vital Signs Reviewed. Mental Status Examination General: Well dressed with good hygiene Speech: Spontaneous and fluid Thought processes: Linear and logical MSK: Smooth and coordinated gait, no signs of tremors or involuntary orofacial movements Thought content: Future orientated Abstract reasoning, and computation: Intact Description of associations: Intact Description of abnormal or psychotic thoughts: Denies any suicidal or homicidal ideation. Denies any auditory or visual hallucinations. Does not appear to be responding to internal stimuli. Does not appear to be endorsing any bizarre or paranoid ideation. Judgment: fair Insight: fair Orientation: Alert and orientated 3 Cognition: Grossly normal Recent and remote memory: Intact Attention span and concentration: Intact Fund of knowledge: Adequate Mood: "okay" Affect: Mildly dysthymic Diagnoses Unspecified depressive disorder, active. Highly likely to be substance-induced. Alcohol use disorder, severe. Tobacco use disorder, severe. Cannabis use disorder, moderate. Assessment and Plan The patient will be continued on naltrexone injectable, Prozac 30 mg BID will be continued prior auth placed for outpatient treatment as well as orders completed for tomorrow's potential discharge. Patient wishes to leave, does not meet further involuntary criteria as he denies any suicidal or homicidal ideation, has been attending to his needs on the unit and declines a further voluntary extension of his admission at this time. Disposition Discharge tomorrow. Time Spent 15 minutes face to face. Thursday Vital Signs Vital Signs Date Time Temp Pulse Resp B/P (MAP) Pulse Ox O2 Delivery O2 Flow Rate FiO2 05/31/19 07:00 96.4 83 18 113/77 (89) 05/25/19 15:22 96 Room Air Current Medications Current Medications Medications (Trade) Dose Ordered Sig/Luz Maria Route PRN Reason Start Time Stop Time Status Last Admin Dose Admin Al Hydrox/Mg Hydrox/Simethicone (Mylanta) 30 ml Q4HP PRN PO HEARTBURN/INDIGESTION 05/25/19 15:00 Albuterol Sulfate (Proventil, Ventolin Hfa) 2 puff Q4HP PRN INH SHORTNESS OF BREATH 05/26/19 09:15 05/31/19 08:07 Fluoxetine HCl (PROzac) 30 mg BID PO 05/27/19 09:00 05/31/19 08:07 Fluoxetine HCl (PROzac) 30 mg QHS PO 05/25/19 09:00 05/25/19 17:03 DC Fluoxetine HCl (PROzac) 30 mg QHS PO 05/25/19 21:00 05/27/19 11:54 DC 05/26/19 20:18 Folic Acid (Folic Acid) 1 mg DAILY PO 05/25/19 09:00 05/31/19 08:07 Gabapentin (Neurontin) 600 mg TID PO 05/25/19 16:00 05/31/19 08:07 Home Med (Med Rec Complete!) ASDIRECTED XX 05/25/19 11:45 05/25/19 11:45 DC Ibuprofen (Advil) 400 mg Q6HP PRN PO PAIN 05/25/19 14:15 05/27/19 11:30 DC Ibuprofen (Advil) 600 mg TIDP PRN PO DISCOMFORT 05/25/19 14:15 05/30/19 20:13 Lorazepam (Ativan) 2 mg ASDIRECTED PRN PO SEE PROTOCOL 05/25/19 15:00 Magnesium Hydroxide (Milk Of Magnesia) 30 ml DAILYPRN PRN PO CONSTIPATION 05/25/19 15:00 Multivitamins (Theragram-M) 1 tab DAILY PO 05/25/19 09:00 05/31/19 08:07 Naltrexone HCl (Revia) 50 mg DAILY PO 05/31/19 09:00 05/31/19 08:07 Nicotine (Nicoderm Cq 21mg) 1 patch DAILY TD 05/26/19 09:00 Olanzapine (ZyPREXA) 5 mg QHS PO 05/25/19 21:00 05/30/19 20:11 Oxazepam (Serax) 10 mg DAILY PO 05/28/19 09:00 05/31/19 08:07 Thiamine HCl (Thiamine HCl) 100 mg BID PO 05/25/19 21:00 05/28/19 20:59 DC 05/28/19 08:12 Trazodone HCl (Desyrel) 50 mg QHS PO 05/25/19 21:00 05/30/19 20:11 Allergies Coded Allergies: No Known Allergies (Verified , 05/19/19) SHREYAS SIFUENTES DO May 31, 2019 10:45
[2019-05-31] MEDS ORDERED: FLUO10CA8 PO (10:56)
[2019-05-31] MEDS ORDERED: FLUO60TA3 PO (12:19)
[2019-05-31] MEDS ORDERED: NALTREXONE 380 MG IM SCH (13:00)
[2019-05-31] MEDS ORDERED: OXAZ10CA3 PO (16:42)
[2019-05-31 18:00] VITALS: BP 97/55
[2019-05-31] MEDS: OLANZapine 5 MG TAB PO SCH (20:32)
[2019-05-31] MEDS: traZODone 50 MG TAB PO SCH (20:32)
[2019-05-31] MEDS: IBUPROFEN 600 MG TAB PO PRN (20:33)
[2019-06-01 06:58] VITALS: BP 112/71
[2019-06-01] MEDS: GABAPENTIN 300 MG CAP PO SCH (08:15)
[2019-06-01] MEDS: OXAZEPAM 10 MG CAP PO SCH (08:15)
[2019-06-01] MEDS: NALTREXONE 50 MG TAB PO SCH (08:15)
[2019-06-01] MEDS: MULTIVITAMINS/MINERALS THERAP 1 TAB PO SCH (08:16)
[2019-06-01] MEDS: FOLIC ACID 1 MG TAB PO SCH (08:16)
[2019-06-01] MEDS: ALBUTEROL 90 MCG/ACT 8GM HFA INHALER INH PRN (08:16)
[2019-06-01] MEDS: FLUoxetine 10 MG CAP PO SCH (08:16)
[2019-06-01] MEDS: NICOTINE 21MG/24HR 1 EA TRANSDERMAL TD SCH (08:16)
--- NOTE | 2019-06-07 14:41 | MHDSPDOC ---
[facility] Discharge Summary Discharge Summary DATE OF ADMISSION: May 25, 2019 at 14:06 DATE OF DISCHARGE: Jun 01, 2019 at 09:50 Diagnoses Unspecified depressive disorder, active. Highly likely to be substance-induced. Alcohol use disorder, severe. Tobacco use disorder, severe. Cannabis use disorder, moderate. History of Present Illness The patient a 58-year-old man who had represented shortly after being discharged describe that he had started drinking after he left as he became stressed out and reportedly had little support. He was kicked out of his housing that he had been living in with a friend and describe that he began to then seek out alcohol and drink himself into a depression. He reports that he subsequently lost his cat and the majority of his possessions. He came into the ER suicidal. After resolution of his symptoms, he became less intoxicated, but still endorsed suicidality and depression. The patient is met with today with the paraplanner, Mignon of which he appears pre-contemplative about rehab and describes that he "just needs to go to [facility]." He describes that his sole focus is on attempting to get back together with his ex-girlfriend. Psychosocial information below is extracted from previous H&P from last presentation and updated with patient. Consultants Involved Hospitalist/PCP screening Treatment and Progress On The Unit The patient was admitted to the unit and had quickly redact any suicidal ideation. He still is contemplative on returning to rehab. Reported some social anxiety and difficulties with coping. He was tried on low dose of Oxazepam, which did well for his social anxiety demonstrating that he likely had some co- occurring mild social anxiety. He improved and was tried on oral naltrexone with positive results. He subsequently agreed to getting the Vivitrol injection of which he got. He requested discharge and at that time had not been endorsing any suicidal or homicidal ideation for several days and had been able to attend to his needs while in the unit and did not meet involuntary criteria in this provider's opinion due to the aforementioned factors. He declined further voluntary admission and was discharged to [facility] for further care. I did with additional services to help him maintain sobriety. Discharge Assessment 58-year-old man with multiple re-admissions due to alcohol and likely alcohol- induced mood problems, presents and is treated with sufficient alcohol treatment due to a fortuitous situation where we were able to obtain oral and intramuscular depot injections of naltrexone, which will likely assure the patient of better success in the future with his psychiatric concerns. Mental Status Examination The patient was discharged the following day psychiatrically stable. I did not see him on the day of discharge. The covering provider did not place a note, however, there appears some documentation that he did not have any change in his mental status prior to his discharge. Per staff patient had seen covering provider prior to leaving with no noted concerns. Follow Up The social work team worked during the predischarge meeting in order to evaluate for further issues of lethality address them fully before discharge. They worked on safety planning with the patient's family members in order to ensure that the patient will have a safe and effective discharge. Time Spent The amount of time spent in the coordination of care for this patient was approximately 30 minutes. Thursday Vital Signs/I&Os Vital Signs Date Time Temp Pulse Resp B/P (MAP) Pulse Ox O2 Delivery O2 Flow Rate FiO2 06/01/19 06:58 96.9 83 12 112/71 (85) Medications Scheduled Fluoxetine HCl (Fluoxetine HCl) 60 Mg Tablet, 0.5 TAB PO BID for mood for 7 Days, #7 Gabapentin (Gabapentin) 600 Mg Tablet, 600 MG PO TID, (Reported) Naltrexone Microspheres (Vivitrol) 380 Mg [place].er.rec, 380 MG IM Q30D for alcohol use disorder for 30 Days, #380 Trazodone HCl (Trazodone HCl) 50 Mg Tablet, 50 MG PO QHS, (Reported) Scheduled PRN Albuterol Sulfate (Ventolin Hfa) 18 Gm Hfa.aer.ad, 2 PUFF INH Q4H PRN for SHORTNESS OF BREATH, (Reported) Ibuprofen (Ibuprofen) 600 Mg Tablet, 600 MG PO TID PRN for PAIN, (Reported) Oxazepam (Oxazepam) 10 Mg Capsule, 10 MG PO DAILYPRN PRN for ANXIETY/AGITATION for 5 Days, #5 Allergies Coded Allergies: No Known Allergies (Verified , 05/19/19) SHREYAS SIFUENTES DO Jun 07, 2019 14:41
== END 2019-06-01 09:50 | disposition home or self-care (01) | DRG 754 ==
LOC: M ED 10:55 → M ED INP 05-25 14:06 → M PSY 05-25 15:55
PROVIDERS: ADMIT Psychiatry & Neurology Addiction Medicine; ATTEND Psychiatry & Neurology Addiction Medicine
DX: F32.9 Major depressive disorder, single episode, unspecified (principal); R45.851 Suicidal ideations; F17.210 Nicotine dependence, cigarettes, uncomplicated; F12.20 Cannabis dependence, uncomplicated; Z79.899 Other long term (current) drug therapy; Z87.820 Personal history of traumatic brain injury; G40.909 Epilepsy, unspecified, not intractable, without status epilepticus; G47.00 Insomnia, unspecified; F10.24 Alcohol dependence with alcohol-induced mood disorder; M54.5 Low back pain; H54.62 Unqualified visual loss, left eye, normal vision right eye; Z87.828 Personal history of other (healed) physical injury and trauma

== ENCOUNTER 2020-04-28 12:30 | Inpatient (IN) | payer MEDICAID ==
[~2020-04-28 12:30] MED LIST changes: +FLUO10CA16 PO; -FLUO10CA8 PO; -FLUO20CA19 PO; +FLUO20CA22 PO; +FLUO60TA3 PO; +OXAZ10CA3 PO; +VIVI380I IM
[2020-04-28] MEDS ORDERED: ONDANSETRON 4 MG ORAL DISINTEGRATING TAB As Ordered ONE (22:08)
[2020-04-28] MEDS ORDERED: OXAZEPAM 15 MG CAP As Ordered ONE (23:20)
[2020-04-29] MEDS ORDERED: FLUTICASONE HFA 44 MCG 10.6GM INHALER (FLOVENT) ONE (08:00)
[2020-04-29] MEDS ORDERED: ALBUTEROL SULFATE 2.5 MG/0.5 ML INH NEB SOLN ONE (08:00)
[2020-04-29] MEDS ORDERED: MOXIFLOXACIN 400 MG TAB ONE (09:00)
[2020-04-29] MEDS ORDERED: LORazepam 2 MG TAB As Ordered ONE ×2 (11:29→12:52)
[2020-04-29] MEDS ORDERED: THIAMINE 100 MG TAB As Ordered ONE ×2 (11:29→22:03)
[2020-04-29] MEDS ORDERED: FOLIC ACID 1 MG TAB ONE (11:29)
[2020-04-29] MEDS ORDERED: MULTIVITAMINS/MINERALS THERAP 1 TAB ONE (11:29)
[2020-04-29] MEDS ORDERED: FOLIC ACID 1 MG TAB As Ordered ONE (11:29)
[2020-04-29] MEDS ORDERED: LORazepam 2 MG TAB ONE ×2 (11:29→12:52)
[2020-04-29] MEDS ORDERED: MULTIVITAMINS/MINERALS THERAP 1 TAB As Ordered ONE (11:29)
[2020-04-29] MEDS ORDERED: THIAMINE 100 MG TAB ONE ×2 (11:29→22:03)
[2020-04-29] MEDS ORDERED: MONTELUKAST 10 MG TAB ONE (14:19)
[2020-04-29] MEDS ORDERED: predniSONE 20 MG TAB ONE (14:19)
[2020-04-29] MEDS ORDERED: NICOTINE 21MG/24HR 1 EA TRANSDERMAL ONE (14:19)
[2020-04-29] MEDS ORDERED: TUBERCULIN PPD 5 UNITS/0.1 ML ONE (14:19)
[2020-04-29] MEDS ORDERED: NICOTINE 21MG/24HR 1 EA TRANSDERMAL As Ordered ONE (14:19)
[2020-04-29] MEDS ORDERED: TIOTROPIUM INHALER/CAPSULE (SPIRIVA) ONE ×2 (14:19→22:14)
[2020-04-29] MEDS ORDERED: TIOTROPIUM INHALER/CAPSULE (SPIRIVA) As Ordered ONE ×2 (14:19→22:14)
[2020-04-29] MEDS ORDERED: TUBERCULIN PPD 5 UNITS/0.1 ML As Ordered ONE (14:20)
[2020-04-29] MEDS ORDERED: MONTELUKAST 10 MG TAB As Ordered ONE (14:22)
[2020-04-29] MEDS ORDERED: predniSONE 20 MG TAB As Ordered ONE (14:22)
[2020-04-29] MEDS ORDERED: FLUTICASONE HFA 220 MCG 12 GM INHALER (FLOVENT) As Ordered ONE (22:22)
[2020-04-30] MEDS ORDERED: TIOTROPIUM INHALER/CAPSULE (SPIRIVA) ONE (08:26)
[2020-04-30] MEDS ORDERED: MULTIVITAMINS/MINERALS THERAP 1 TAB ONE (08:26)
[2020-04-30] MEDS ORDERED: THIAMINE 100 MG TAB ONE (08:26)
[2020-04-30] MEDS ORDERED: FOLIC ACID 1 MG TAB ONE (08:26)
[2020-04-30] MEDS ORDERED: MONTELUKAST 10 MG TAB ONE (08:26)
[2020-04-30] MEDS ORDERED: predniSONE 20 MG TAB ONE (08:26)
[2020-04-30] MEDS ORDERED: FLUTICASONE HFA 44 MCG 10.6GM INHALER (FLOVENT) ONE (15:09)
[2020-04-30] MEDS ORDERED: ALBUTEROL SULFATE 2.5 MG/0.5 ML INH NEB SOLN ONE (15:09)
[2020-05-01] MEDS ORDERED: ALBUTEROL SULFATE 2.5 MG/0.5 ML INH NEB SOLN ONE (09:00)
[2020-06-14 17:18] LABS: BASO # 0.1 10^3/uL (0.0-0.2); BASO % 0.8 % (0.0-1.0); EOS % 0.3 % (0.0-3.0); HEMOGLOBIN 13.7 g/dl (13.5-17.5); LYMPH # 1.5 10^3/uL (1.5-5.0); LYMPH % 23.3 % (24.0-44.0); MEAN CORPUSCULAR HGB CONC 33.4 g/dl (32.0-36.5); MEAN CORPUSCULAR VOLUME 92.8 fl (80.0-96.0); MONO # 0.6 10^3/uL (0.0-0.8); MONO % 9.7 % (0.0-5.0); NEUTROPHILS # 4.1 10^3/uL (1.5-8.5); NEUTROPHILS % 65.6 % (36.0-66.0); PLATELET COUNT, AUTOMATED 166 10^3/uL (150-450); RED BLOOD COUNT 4.42 10^6/uL (4.30-6.10); WHITE BLOOD COUNT 6.3 10^3/uL (4.0-10.0)
[2020-06-15 18:42] LABS: BASO % 0.6 % (0.0-1.0); EOS % 0.3 % (0.0-3.0); ERYTHROCYTE SEDIMENTATION RATE 2 mm/hr (0-20); HEMATOCRIT 44.8 % (42.0-52.0); HEMOGLOBIN 14.8 g/dl (13.5-17.5); LYMPH # 0.9 10^3/uL (1.5-5.0); MEAN CORPUSCULAR HEMOGLOBIN 30.7 pg (27.0-33.0); MEAN CORPUSCULAR VOLUME 92.9 fl (80.0-96.0); MONO # 0.6 10^3/uL (0.0-0.8); MONO % 9.4 % (0.0-5.0); NEUTROPHILS # 4.7 10^3/uL (1.5-8.5); NEUTROPHILS % 74.5 % (36.0-66.0); PLATELET COUNT, AUTOMATED 159 10^3/uL (150-450); RED BLOOD COUNT 4.82 10^6/uL (4.30-6.10); WHITE BLOOD COUNT 6.3 10^3/uL (4.0-10.0)
[2020-07-17 20:27] LABS: ACETAMINOPHEN LEVEL < 2.0 UG/ML (10.0-30.0); ALBUMIN 3.8 GM/DL (3.2-5.2); ALT/SGPT 105 U/L (12-78); AMPHETAMINES LEVEL URINE NEGATIVE (NEGATIVE); BARBITURATES URINE NEGATIVE (NEGATIVE); BENZODIAZEPINES URINE NEGATIVE (NEGATIVE); BILIRUBIN,DIRECT 0.1 MG/DL (0.0-0.2); BILIRUBIN,TOTAL 0.3 MG/DL (0.2-1.0); BLOOD UREA NITROGEN 10 MG/DL (7-18); CALCIUM LEVEL 8.8 MG/DL (8.5-10.1); CANNABINOIDS URINE POSITIVE (NEGATIVE); CARBON DIOXIDE LEVEL 29 MEQ/L (21-32); CHLORIDE LEVEL 96 MEQ/L (98-107); COCAINE METABOLITE URINE NEGATIVE (NEGATIVE); CREATININE FOR GFR 0.95 MG/DL (0.70-1.30); ETHYL ALCOHOL (ETHANOL) 0.295 % (0.000-0.010); FREE T4 0.86 NG/DL (0.76-1.46); GLOMERULAR FILTRATION RATE > 60.0 (>56); GLUCOSE, FASTING 85 MG/DL (70-100); METHADONE URINE NEGATIVE (NEGATIVE); OPIATES URINE NEGATIVE (NEGATIVE); PHENCYCLIDINE URINE NEGATIVE (NEGATIVE); POTASSIUM SERUM 4.1 MEQ/L (3.5-5.1); SODIUM LEVEL 134 MEQ/L (136-145); TOTAL PROTEIN 7.2 GM/DL (6.4-8.2)
[2020-07-23 23:13] LABS: ALT/SGPT 102 U/L (12-78); BLOOD UREA NITROGEN 15 MG/DL (7-18); C REACTIVE PROTEIN QUANTITATIV 0.33 MG/DL (0.00-0.30); CALCIUM LEVEL 9.7 MG/DL (8.5-10.1); CARBON DIOXIDE LEVEL 34 MEQ/L (21-32); CHLORIDE LEVEL 97 MEQ/L (98-107); CREATININE FOR GFR 1.08 MG/DL (0.70-1.30); GLOMERULAR FILTRATION RATE > 60.0 (>56); GLUCOSE, FASTING 93 MG/DL (70-100); HEMOGLOBIN A1c 5.7 %; MAGNESIUM LEVEL 1.9 MG/DL (1.8-2.4); POTASSIUM SERUM 4.4 MEQ/L (3.5-5.1); SODIUM LEVEL 136 MEQ/L (136-145)
== END 2020-04-30 15:10 | disposition home or self-care (01) | DRG 754 ==
LOC: M ED 12:30 → M PSY 04-29 01:00
PROVIDERS: ADMIT Psychiatry & Neurology Addiction Medicine; ATTEND Psychiatry & Neurology Addiction Medicine
DX: F32.9 Major depressive disorder, single episode, unspecified (principal); Z91.19 Patient's noncompliance with other medical treatment and regimen; R45.851 Suicidal ideations; F10.20 Alcohol dependence, uncomplicated

== ENCOUNTER 2020-07-23 09:45 | Observation (INO) | payer MEDICAID, OTHER ==
[~2020-07-23] VITALS: Ht 172.7 cm; Wt 69.0 kg
[2020-07-23] MEDS ORDERED: OLAN10TA2 PO (10:03)
[2020-07-23] MEDS ORDERED: ALBU8.5H INH (10:03)
[2020-07-23] MEDS ORDERED: methylPREDNISolone 125MG 2ML VIAL IV ONE (10:15)
[2020-07-23] MEDS ORDERED: IPRATROPIUM 0.5MG/ALBUTEROL 2.5MG INH SOL UD 3ML (DUONEB) NEB PRN (10:15)
[2020-07-23 10:41] LABS: BASO # 0.1 10^3/uL (0.0-0.2); BASO % 0.4 % (0.0-1.0); EOS % 0.1 % (0.0-3.0); HEMATOCRIT 37.3 % (42.0-52.0); HEMOGLOBIN 11.6 g/dl (13.5-17.5); LYMPH # 1.5 10^3/uL (1.5-5.0); LYMPH % 8.6 % (24.0-44.0); MEAN CORPUSCULAR HEMOGLOBIN 27.2 pg (27.0-33.0); MEAN CORPUSCULAR HGB CONC 31.1 g/dl (32.0-36.5); MEAN CORPUSCULAR VOLUME 87.6 fl (80.0-96.0); MONO # 1.9 10^3/uL (0.0-0.8); MONO % 10.9 % (0.0-5.0); NEUTROPHILS # 13.9 10^3/uL (1.5-8.5); NEUTROPHILS % 79.7 % (36.0-66.0); PLATELET COUNT, AUTOMATED 308 10^3/uL (150-450); RED BLOOD COUNT 4.26 10^6/uL (4.30-6.10); WHITE BLOOD COUNT 17.4 10^3/uL (4.0-10.0)
--- NOTE | 2020-07-23 10:59 | REP ---
INDICATION: DYSPNEA/COUGH. COMPARISON: 04/29/2020 TECHNIQUE: AP portable seated chest FINDINGS: Lungs are hyperinflated with emphysematous changes in mid and upper lung zone. No pleural effusion, acute infiltrate or parenchymal mass. The heart size is not enlarged for portable technique. There is no vascular redistribution or edema. The aorta is mildly tortuous but without aneurysm. Airway midline, intact. No mediastinal or hilar mass nor asymmetry. Bones without acute finding. No free air. IMPRESSION: 1. Hyperinflation from COPD with some emphysematous changes in the upper lung zones. No acute cardiopulmonary process. <Electronically signed by Pablo Cuevas > 07/23/20 [id number]
[2020-07-23 11:24] LABS: ALBUMIN 3.3 GM/DL (3.2-5.2); BILIRUBIN,DIRECT 0.2 MG/DL (0.0-0.2); BILIRUBIN,TOTAL 0.5 MG/DL (0.2-1.0); THYROID STIMULATING HORMONE 1.24 uIU/ML (0.358-3.740); TOTAL PROTEIN 7.7 GM/DL (6.4-8.2)
[2020-07-23] MEDS ORDERED: ISOVUE-370 76% 100ML VIAL As Ordered ONE (11:24)
[2020-07-23] MEDS ORDERED: NS 500 ML IV ONE (11:30)
--- NOTE | 2020-07-23 12:11 | REP ---
INDICATION: dyspnea. COMPARISON: Portable chest 07/23/2020 TECHNIQUE: CT angiogram chest performed following the intravenous administration of 100 cc of Isovue 370. Sagittal and coronal reconstruction images are performed. FINDINGS: Lungs: Well inflated without infiltrate, effusion, nodule or mass. No pleural thickening or pleural based mass. No pneumothorax. Mediastinum: No pathologic sized mediastinal adenopathy/mass. Pulmonary arteries: The main, right and left pulmonary arteries in the mediastinum are without filling defect. Lobar, segmental and subsegmental pulmonary arteries are also without filling defect or vessel cut off. Brianda: No adenopathy or mass. Axilla: No adenopathy. Pleura: No effusion, pleural thickening or pleural based mass. Heart: Not enlarged. Thoracic aorta: No aneurysm or dissection but some minor atherosclerotic calcifications are noted.. Upper abdominal structures: Unremarkable. Visualized osseous structures: No bony compression deformities or destructive lesions in the spine. Other visualized bony structures are unremarkable as well.. IMPRESSION: No CT evidence of pulmonary embolism.No infiltrate seen. No acute finding. <Electronically signed by Pablo Cuevas > 07/23/20 [id number]
[2020-07-23] MEDS ORDERED: FLUO20CA22 PO (15:38)
[2020-07-23] MEDS ORDERED: ALBUTEROL 90 MCG/ACT 8GM HFA INHALER INH PRN (16:30)
[2020-07-23] MEDS ORDERED: MAALOX 30 ML SUSP *UDC PO PRN (16:30)
[2020-07-23] MEDS ORDERED: ACETAMINOPHEN TAB 650MG DOSE (2X325MG) PO PRN (16:30)
[2020-07-23] MEDS ORDERED: MOM 30ML SUSPENSION UDC PO PRN (16:30)
[2020-07-23] MEDS ORDERED: LORazepam 2 MG TAB PO PRN (17:15)
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
[2020-07-23 18:00] VITALS: BP_SYST 145; BP_SYST 188; BP_DIAS 100; BP_DIAS 92
[2020-07-23] MEDS: NS 1,000 ML IV SCH (18:20)
[2020-07-23] MEDS: cefTRIAXone SOD 1 GM in D5W MINI-BAG PLUS 50 ML IV SCH (18:22)
[2020-07-23] MEDS: FLUoxetine 20 MG CAP PO SCH (18:23)
[2020-07-23] MEDS: THIAMINE 100 MG TAB PO SCH (18:25)
[2020-07-23 18:27] VITALS: BP 142/92
--- NOTE | 2020-07-23 19:41 | ECGEPIP ---
[facility] - ED Test Date: 2020-07-23 Pat Name: LAURO CARDENAS Department: Room: - Gender: Male [employer] Application Developer: TAINA : 1960 Requested By: JOSE FRANCISCO RAMIREZ Order Number: [id number] Reading MD: Maricruz Piña Measurements Intervals [place] Rate: 104 P: 78 TN: 116 QRS: 79 QRSD: 84 T: 75 QT: 327 QTc: 430 Interpretive Statements SINUS TACHYCARDIA WITH SHORT TN INTERVAL ABNORMAL RHYTHM ECG NSTTW abnormalities Electronically Signed on 07-23-2020 19:41:17 EST by Maricruz Piña
[2020-07-23] MEDS: IPRATROPIUM 0.5MG/ALBUTEROL 2.5MG INH SOL UD 3ML (DUONEB) NEB SCH (19:45)
[2020-07-23] MEDS: SYMBICORT 80/4.5MCG INHALER 6GM INH SCH (19:45)
[2020-07-23] MEDS: OLANZapine 10 MG TAB PO SCH (20:04)
[2020-07-23] MEDS: traZODone 50 MG TAB PO SCH (20:04)
[2020-07-23] MEDS: GABAPENTIN 300 MG CAP PO SCH (20:04)
[2020-07-23] MEDS: DOCUSATE SODIUM 100 MG CAP PO SCH (20:04)
[2020-07-23 22:00] VITALS: BP 127/88
[2020-07-24] MEDS: IPRATROPIUM 0.5MG/ALBUTEROL 2.5MG INH SOL UD 3ML (DUONEB) NEB SCH ×4 (02:00→19:35)
[2020-07-24] MEDS: NS 1,000 ML IV SCH ×3 (02:47→20:15)
[2020-07-24 02:49] VITALS: BP 135/86
[2020-07-24 05:54] LABS: BASO % 0.1 % (0.0-1.0); HEMATOCRIT 39.2 % (42.0-52.0); HEMOGLOBIN 11.7 g/dl (13.5-17.5); LYMPH # 1.1 10^3/uL (1.5-5.0); LYMPH % 7.9 % (24.0-44.0); MEAN CORPUSCULAR HEMOGLOBIN 26.5 pg (27.0-33.0); MEAN CORPUSCULAR HGB CONC 29.8 g/dl (32.0-36.5); MEAN CORPUSCULAR VOLUME 88.9 fl (80.0-96.0); MONO # 0.6 10^3/uL (0.0-0.8); MONO % 4.4 % (0.0-5.0); NEUTROPHILS # 12.6 10^3/uL (1.5-8.5); PLATELET COUNT, AUTOMATED 355 10^3/uL (150-450); RED BLOOD COUNT 4.41 10^6/uL (4.30-6.10); WHITE BLOOD COUNT 14.5 10^3/uL (4.0-10.0)
[2020-07-24 06:00] VITALS: BP 135/87
[2020-07-24 06:31] LABS: ALBUMIN 3.1 GM/DL (3.2-5.2); ALT/SGPT 33 U/L (12-78); BILIRUBIN,TOTAL 0.4 MG/DL (0.2-1.0); BLOOD UREA NITROGEN 18 MG/DL (7-18); CALCIUM LEVEL 8.9 MG/DL (8.5-10.1); CARBON DIOXIDE LEVEL 23 MEQ/L (21-32); CHLORIDE LEVEL 105 MEQ/L (98-107); CREATININE FOR GFR 1.18 MG/DL (0.70-1.30); GLOMERULAR FILTRATION RATE > 60.0 (>56); GLUCOSE, FASTING 135 MG/DL (70-100); MAGNESIUM LEVEL 2.5 MG/DL (1.8-2.4); POTASSIUM SERUM 3.7 MEQ/L (3.5-5.1); SODIUM LEVEL 138 MEQ/L (136-145); TOTAL PROTEIN 7.7 GM/DL (6.4-8.2)
[2020-07-24] MEDS: SYMBICORT 80/4.5MCG INHALER 6GM INH SCH ×2 (08:07→19:36)
[2020-07-24] MEDS: GABAPENTIN 300 MG CAP PO SCH ×2 (08:24→20:13)
[2020-07-24] MEDS: FLUoxetine 20 MG CAP PO SCH (08:24)
[2020-07-24] MEDS: PANTOPRAZOLE 40MG TAB (PROTONIX) PO SCH (08:24)
[2020-07-24] MEDS: THIAMINE 100 MG TAB PO SCH ×2 (08:24→20:16)
[2020-07-24] MEDS: FOLIC ACID 1 MG TAB PO SCH (08:24)
[2020-07-24] MEDS: MULTIVITAMINS/MINERALS THERAP 1 TAB PO SCH (08:24)
[2020-07-24] MEDS: DOCUSATE SODIUM 100 MG CAP PO SCH ×2 (08:24→20:13)
[2020-07-24] MEDS: ENOXAPARIN 40MG/0.4ML SYRINGE (J1650 PER 10MG) SC SCH (08:25)
[2020-07-24 08:28] VITALS: BP 148/90
[2020-07-24] MEDS ORDERED: predniSONE 20 MG TAB PO SCH (09:00)
[2020-07-24 14:00] VITALS: BP 125/79
[2020-07-24 16:11] VITALS: BP 130/80
[2020-07-24] MEDS: cefTRIAXone SOD 1 GM in D5W MINI-BAG PLUS 50 ML IV SCH (17:15)
--- NOTE | 2020-07-24 18:01 | IPNPDOC ---
Date Seen The patient was seen on 07/24/20. Progress Note SUBJECTIVE: Complains of incr SOB with activity, very wheezy on exam. Switched to IV methylprednisolone IV 60 mg Q12 hrs from PO prednisone, on RA. Suggested walking today to see if O2 drops. Denies chest pain, fever, chills, n/v/d OBJECTIVE: PHYSICAL EXAMINATION: VITAL SIGNS: please see below General: Mildly short of breath at rest, AAOx3 HEENT: PERRLA, EOMI, sclerae clear Neck: supple, normal ROM, no JVD Respiratory: wheezing bilaterally, occasional rhonchi, no crackles CVS: RRR, normal S1, S2, no murmurs Abdo: soft, no masses, no hepatosplenomegaly, BS+, no rebound tenderness Extremities: no edema, pulses 1+, tar staining on fingers MSK: no joint deformities, normal ROM Neuro: no focal neuro deficits, moving all 4 extremities, CN2-12 intact. Strength 5/5 in all 4 extremities. No nystagmus. Psych: calm, cooperative LABORATORY DATA: See below. IMAGING: CXR (07/23/20): Hyperinflation c/w COPD, emphysematous changes in upper lung zones. No infiltrate or pleural effusion seen. CTA chest (07/23/20): No pulmonary embolism. No infiltrate. No acute changes. MICROBIOLOGY: Please see below. ASSESSMENT: 59 yo M with a hx of COPD, depression, HTN, chronic smoking, etoh use disorder, presented to [facility] ER with progressively worsening shortness of breath and cough productive of green sputum, likely due to acute COPD exacerbation. PLAN: #Acute COPD exacerbation -On RA ;however, much more wheezy, SOB with speaking and with activity -Increased to IV methylprednisolone Q12 H -c/w duonebs ATC, albuterol PRN, ceftriaxone - Continuous O2 monitoring. O2 via NC, titrate SpO2 > 92%. #Leukocytosis likely steroid induced -WBC improved to 15K -Afebrile -CTA chest: no PNA -Daily CBC #Neuropathy -Stable -C/w gabapentin 600 mg. #HTN -Stable #Depression -Denies HI/SI - c/w fluoxetine, trazodine. Olanzapine. #ETOH use disorder -failed naltrexone therapy - [facility] protocol. Ativan. MVT. Folate, thiamine. #GI ppx - PPI. #DVT ppx -: lovenox DISPOSITION: admitted for observation and treatment of acute COPD exacerbation. VS, I&O, 24H, Fishbone Vital Signs/I&O Vital Signs Date Time Temp Pulse Resp B/P (MAP) Pulse Ox O2 Delivery O2 Flow Rate FiO2 07/24/20 16:18 123 26 96 Room Air 07/24/20 16:11 130/80 07/24/20 14:00 98.4 I&O- Last 24 Hours up to 6 AM 07/24/20 06:00 Intake Total 2150 ml Output Total 120 ml Balance 2030 ml Laboratory Data 24H LABS Laboratory Tests 2 07/24/20 05:23: Immature Granulocyte % (Auto) 0.6, Neutrophils (%) (Auto) 87.0H, Lymphocytes (%) (Auto) 7.9L, Monocytes (%) (Auto) 4.4, Eosinophils (%) (Auto) 0.0, Basophils (%) (Auto) 0.1, Neutrophils # (Auto) 12.6H, Lymphocytes # (Auto) 1.1L, Monocytes # (Auto) 0.6, Eosinophils # (Auto) 0.0, Basophils # (Auto) 0.0, Nucleated Red Blood Cells % (auto) 0.0, Anion Gap 10, Glomerular Filtration Rate > 60.0, Calcium Level 8.9, Magnesium Level 2.5H, Total Bilirubin 0.4, Aspartate Amino Transf (AST/SGOT) 50H, Alanine Aminotransferase (ALT/SGPT) 33, Alkaline Phosphatase 80, Total Protein 7.7, Albumin 3.1L, Albumin/Globulin Ratio 0.7 CBC/BMP Laboratory Tests 07/24/20 05:23 Microbiology Microbiology 07/23/20 Respiratory Virus Panel (PCR) ([facility]) - Final, Complete Current Medications Current Medications Medications (Trade) Dose Ordered Sig/Luz Maria Route PRN Reason Start Time Stop Time Status Last Admin Dose Admin Acetaminophen (Tylenol Tab) 650 mg Q4H PRN PO PAIN OR FEVER 07/23/20 16:30 Al Hydrox/Mg Hydrox/Simethicone (Mylanta) 30 ml DAILY PRN PO DYSPEPSIA 07/23/20 16:30 Albuterol Sulfate (Proventil, Ventolin Hfa) 2 puff Q4HP PRN INH SHORTNESS OF BREATH 07/23/20 16:30 Albuterol/ Ipratropium (Duoneb (Ipr 0.5mg/Alb 2.5mg)) 3 ml Q20M PRN NEB SHORTNESS OF BREATH 07/23/20 10:15 07/23/20 16:31 DC 07/23/20 10:51 Albuterol/ Ipratropium (Duoneb (Ipr 0.5mg/Alb 2.5mg)) 3 ml RQ6H NEB 07/23/20 20:00 07/24/20 14:28 Budesonide/ Formoterol Fumarate (Symbicort 80/ 4.5mcg) 2 puff BID INH 07/23/20 21:00 07/24/20 08:07 Ceftriaxone Sodium 1 gm/ Dextrose 50 ml @ 100 mls/hr Q24H IV 07/23/20 17:00 07/24/20 17:15 Docusate Sodium (Colace) 100 mg BID PO 07/23/20 21:00 07/24/20 08:24 Enoxaparin Sodium (Lovenox) 40 mg DAILY SC 07/24/20 09:00 07/24/20 08:25 Fluoxetine HCl (PROzac) 60 mg DAILY PO 07/23/20 17:00 07/24/20 08:24 Folic Acid (Folic Acid) 1 mg DAILY PO 07/24/20 09:00 07/24/20 08:24 Gabapentin (Neurontin) 600 mg BID PO 07/23/20 21:00 07/24/20 08:24 Home Med (Med Rec Complete!) ASDIRECTED XX 07/23/20 15:45 07/23/20 15:42 DC Lorazepam (Ativan) 2 mg ASDIRECTED PRN PO SEE PROTOCOL 07/23/20 17:15 Magnesium Hydroxide (Milk Of Magnesia) 30 ml DAILY PRN PO CONSTIPATION 07/23/20 16:30 Methylprednisolone (SOLUmedrol) 60 mg Q12H IV 07/24/20 20:00 Multivitamins (Theragram-M) 1 tab DAILY PO 07/24/20 09:00 07/24/20 08:24 Olanzapine (ZyPREXA) 10 mg QHS PO 07/23/20 21:00 07/23/20 20:04 Pantoprazole Sodium (Protonix) 40 mg DAILY PO 07/24/20 09:00 07/24/20 08:24 Prednisone (Deltasone) 40 mg DAILY PO 07/24/20 09:00 07/24/20 10:31 DC 07/24/20 08:24 Sodium Chloride 1,000 ml @ 125 mls/hr Q8H IV 07/23/20 16:21 07/24/20 11:42 Thiamine HCl (Thiamine HCl) 100 mg BID PO 07/23/20 18:00 07/26/20 09:01 07/24/20 08:24 Trazodone HCl (Desyrel) 50 mg QHS PO 07/23/20 21:00 07/23/20 20:04 Allergies Coded Allergies: No Known Allergies (Verified , 05/19/19) Jolene Ye MD Jul 24, 2020 18:01
[2020-07-24 20:00] VITALS: BP 127/77
[2020-07-24] MEDS: methylPREDNISolone 125MG 2ML VIAL IV SCH (20:13)
[2020-07-24] MEDS: OLANZapine 10 MG TAB PO SCH (20:13)
[2020-07-24] MEDS: traZODone 50 MG TAB PO SCH (20:13)
[2020-07-25] VITALS: BP 135/80
[2020-07-25] MEDS: IPRATROPIUM 0.5MG/ALBUTEROL 2.5MG INH SOL UD 3ML (DUONEB) NEB SCH ×2 (02:32→07:28)
[2020-07-25] MEDS: NS 1,000 ML IV SCH ×2 (04:19→08:36)
[2020-07-25 05:57] LABS: BASO % 0.1 % (0.0-1.0); HEMATOCRIT 34.3 % (42.0-52.0); HEMOGLOBIN 10.2 g/dl (13.5-17.5); LYMPH # 0.8 10^3/uL (1.5-5.0); LYMPH % 6.5 % (24.0-44.0); MEAN CORPUSCULAR HEMOGLOBIN 27.1 pg (27.0-33.0); MEAN CORPUSCULAR HGB CONC 29.7 g/dl (32.0-36.5); MONO # 0.4 10^3/uL (0.0-0.8); MONO % 3.1 % (0.0-5.0); NEUTROPHILS # 10.7 10^3/uL (1.5-8.5); NEUTROPHILS % 89.7 % (36.0-66.0); PLATELET COUNT, AUTOMATED 331 10^3/uL (150-450); RED BLOOD COUNT 3.77 10^6/uL (4.30-6.10)
[2020-07-25 06:00] VITALS: BP 124/72
[2020-07-25 06:36] LABS: ALBUMIN 2.6 GM/DL (3.2-5.2); ALT/SGPT 33 U/L (12-78); BILIRUBIN,TOTAL 0.3 MG/DL (0.2-1.0); BLOOD UREA NITROGEN 19 MG/DL (7-18); CALCIUM LEVEL 8.9 MG/DL (8.5-10.1); CARBON DIOXIDE LEVEL 26 MEQ/L (21-32); CHLORIDE LEVEL 110 MEQ/L (98-107); GLOMERULAR FILTRATION RATE > 60.0 (>56); GLUCOSE, FASTING 145 MG/DL (70-100); MAGNESIUM LEVEL 2.3 MG/DL (1.8-2.4); POTASSIUM SERUM 4.3 MEQ/L (3.5-5.1); SODIUM LEVEL 141 MEQ/L (136-145); TOTAL PROTEIN 6.4 GM/DL (6.4-8.2)
[2020-07-25] MEDS: SYMBICORT 80/4.5MCG INHALER 6GM INH SCH (07:28)
[2020-07-25 08:00] VITALS: BP 140/82
[2020-07-25] MEDS: methylPREDNISolone 125MG 2ML VIAL IV SCH (08:35)
[2020-07-25] MEDS: FOLIC ACID 1 MG TAB PO SCH (08:36)
[2020-07-25] MEDS: MULTIVITAMINS/MINERALS THERAP 1 TAB PO SCH (08:36)
[2020-07-25] MEDS: ENOXAPARIN 40MG/0.4ML SYRINGE (J1650 PER 10MG) SC SCH (08:36)
[2020-07-25] MEDS: THIAMINE 100 MG TAB PO SCH (08:36)
[2020-07-25] MEDS: DOCUSATE SODIUM 100 MG CAP PO SCH (08:36)
[2020-07-25] MEDS: PANTOPRAZOLE 40MG TAB (PROTONIX) PO SCH (08:36)
[2020-07-25] MEDS: GABAPENTIN 300 MG CAP PO SCH (08:36)
[2020-07-25] MEDS: FLUoxetine 20 MG CAP PO SCH (08:36)
[2020-07-25] MEDS ORDERED: ALBU83IN NEB (11:15)
[2020-07-25] MEDS ORDERED: PRED20TA PO (11:15)
[2020-07-25 14:00] VITALS: BP_SYST 128; BP_SYST 136; BP_DIAS 76; BP_DIAS 78
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
== END 2020-07-25 14:59 | disposition home or self-care (01) ==
LOC: EDBD 09:45 → M ED 09:45 → M ED INP 09:46 → M MSPAV 09:46 → ENRESERV 16:37 → M MSPAV 18:01
PROVIDERS: ADMIT Family Medicine; ATTEND Internal Medicine
DX: J44.1 Chronic obstructive pulmonary disease with (acute) exacerbation (principal); D72.829 Elevated white blood cell count, unspecified; G62.9 Polyneuropathy, unspecified; I10 Essential (primary) hypertension; F32.9 Major depressive disorder, single episode, unspecified; F17.218 Nicotine dependence, cigarettes, with other nicotine-induced disorders; F10.10 Alcohol abuse, uncomplicated; Z79.51 Long term (current) use of inhaled steroids; Z79.52 Long term (current) use of systemic steroids; Z79.899 Other long term (current) drug therapy
CPT/HCPCS: 36415; 71045; 71275; 80047; 80053; 80076; 83605; 83735; 83880; 84145; 84443; 85025; 87486; 87581; 87633; 87798; 93005; 93041; 94640; 94760; 96361; 96365; 96366; 96372; 96375; 96376; 97161; 97530; 99285; J0696; J1650; J2930; Q9967

== ENCOUNTER → 2020-08-09 | Outpatient (REF) | payer OTHER ==
[~2020-08-09] MED LIST changes: +ALBU8.5H INH; +ALBU83IN NEB; +OLAN10TA2 PO; +PRED20TA PO
[2020-08-09 17:14] LABS: BASO # 0.1 10^3/uL (0.0-0.2); BASO % 0.5 % (0.0-1.0); EOS # 0.1 10^3/uL (0.0-0.5); EOS % 0.8 % (0.0-3.0); HEMATOCRIT 37.8 % (42.0-52.0); LYMPH # 1.4 10^3/uL (1.5-5.0); LYMPH % 12.6 % (24.0-44.0); MEAN CORPUSCULAR HGB CONC 29.1 g/dl (32.0-36.5); MEAN CORPUSCULAR VOLUME 89.4 fl (80.0-96.0); MONO # 1.4 10^3/uL (0.0-0.8); MONO % 12.8 % (0.0-5.0); NEUTROPHILS # 7.9 10^3/uL (1.5-8.5); NEUTROPHILS % 72.6 % (36.0-66.0); PLATELET COUNT, AUTOMATED 271 10^3/uL (150-450); RED BLOOD COUNT 4.23 10^6/uL (4.30-6.10); WHITE BLOOD COUNT 10.9 10^3/uL (4.0-10.0)
[2020-08-09 17:44] LABS: ALBUMIN 3.5 GM/DL (3.2-5.2); ALT/SGPT 32 U/L (12-78); BILIRUBIN,TOTAL 0.3 MG/DL (0.2-1.0); BLOOD UREA NITROGEN 12 MG/DL (7-18); CALCIUM LEVEL 9.1 MG/DL (8.5-10.1); CARBON DIOXIDE LEVEL 27 MEQ/L (21-32); CHLORIDE LEVEL 104 MEQ/L (98-107); CHOLESTEROL LEVEL 205 MG/DL (<200); CHOLESTEROL RISK RATIO 3.014 (<5); CREATININE FOR GFR 1.22 MG/DL (0.70-1.30); GLOMERULAR FILTRATION RATE > 60.0 (>56); GLUCOSE, FASTING 98 MG/DL (70-100); HDL CHOLESTEROL 68 MG/DL (>40); LDL CHOLESTEROL 114 MG/DL (<100); NON-HDL-C 137 MG/DL; POTASSIUM SERUM 4.4 MEQ/L (3.5-5.1); SODIUM LEVEL 139 MEQ/L (136-145); TOTAL 25(OH) VITAMIN D 13.8 NG/ML (30.0-100.0); TOTAL PROTEIN 6.6 GM/DL (6.4-8.2); TRIGLYCERIDES LEVEL 113 MG/DL (<150)
== END ==
LOC: M LAB REF 16:21
PROVIDERS: ATTEND Physician Assistant
DX: F10.10 Alcohol abuse, uncomplicated (principal); R73.03 Prediabetes; R03.0 Elevated blood-pressure reading, without diagnosis of hypertension; E55.9 Vitamin D deficiency, unspecified

== ENCOUNTER → 2020-09-07 | Outpatient (REF) | payer OTHER ==
[2020-09-07 11:26] LABS: BASO % 0.4 % (0.0-1.0); EOS # 0.2 10^3/uL (0.0-0.5); EOS % 1.5 % (0.0-3.0); HEMATOCRIT 38.1 % (42.0-52.0); HEMOGLOBIN 11.2 g/dl (13.5-17.5); LYMPH # 3.5 10^3/uL (1.5-5.0); LYMPH % 31.5 % (24.0-44.0); MEAN CORPUSCULAR HEMOGLOBIN 24.6 pg (27.0-33.0); MEAN CORPUSCULAR HGB CONC 29.4 g/dl (32.0-36.5); MEAN CORPUSCULAR VOLUME 83.6 fl (80.0-96.0); MONO # 1.1 10^3/uL (0.0-0.8); MONO % 9.8 % (0.0-5.0); NEUTROPHILS # 6.2 10^3/uL (1.5-8.5); NEUTROPHILS % 56.3 % (36.0-66.0); PLATELET COUNT, AUTOMATED 337 10^3/uL (150-450); RED BLOOD COUNT 4.56 10^6/uL (4.30-6.10)
[2020-09-07 11:55] LABS: FOLATE 10.4 NG/ML
== END ==
LOC: M LAB REF 10:32
PROVIDERS: ATTEND Physician Assistant
DX: D64.9 Anemia, unspecified (principal)

== ENCOUNTER → 2020-11-13 | Outpatient (REF) | payer OTHER ==
[~2020-11-13] MED LIST changes: +GABA-282 PO; -GABA-843 PO
[2020-11-13 17:44] LABS: PERCENT SATURATION 26.4 % (19.7-50.0)
== END ==
LOC: M LAB REF 16:24
PROVIDERS: ATTEND Physician Assistant
DX: D50.9 Iron deficiency anemia, unspecified (principal)

== ENCOUNTER 2021-02-07 00:33 | Inpatient (IN) | payer OTHER ==
[~2021-02-07] VITALS: Ht 172.7 cm; Wt 67.2 kg
[2021-02-07] MEDS ORDERED: methylPREDNISolone 125MG 2ML VIAL IV ONE (01:25)
[2021-02-07 01:29] LABS: BASO # 0.1 10^3/uL (0.0-0.2); BASO % 1.2 % (0.0-1.0); EOS # 0.3 10^3/uL (0.0-0.5); EOS % 4.1 % (0.0-3.0); HEMATOCRIT 38.5 % (42.0-52.0); HEMOGLOBIN 12.4 g/dl (13.5-17.5); LYMPH # 2.1 10^3/uL (1.5-5.0); LYMPH % 30.7 % (24.0-44.0); MEAN CORPUSCULAR HGB CONC 32.2 g/dl (32.0-36.5); MONO # 0.9 10^3/uL (0.0-0.8); MONO % 13.5 % (2.0-8.0); NEUTROPHILS # 3.5 10^3/uL (1.5-8.5); NEUTROPHILS % 50.2 % (36.0-66.0); PLATELET COUNT, AUTOMATED 228 10^3/uL (150-450); RED BLOOD COUNT 4.28 10^6/uL (4.30-6.10); VENOUS BASE EXCESS -1.7 (-2.0-2.0); VENOUS HCO3 23.3 MEQ/L (23.0-27.0); VENOUS O2 SATURATION 96.2 % (60.0-80.0); VENOUS PARTIAL PRESSURE CO2 40.3 mmHg (38.0-50.0); VENOUS PARTIAL PRESSURE O2 94.3 mmHg (30.0-50.0); VENOUS PH 7.379 UNITS (7.330-7.430); VENOUS TOTAL CO2 24.5 MEQ/L (24.0-28.0); WHITE BLOOD COUNT 6.9 10^3/uL (4.0-10.0)
[2021-02-07 01:47] LABS: ACETAMINOPHEN LEVEL < 2.0 UG/ML (10.0-30.0); ALBUMIN 3.6 GM/DL (3.2-5.2); ALT/SGPT 71 U/L (12-78); BILIRUBIN,DIRECT 0.1 MG/DL (0.0-0.2); BILIRUBIN,TOTAL 0.3 MG/DL (0.2-1.0); BLOOD UREA NITROGEN 14 MG/DL (7-18); CALCIUM LEVEL 8.7 MG/DL (8.5-10.1); CARBON DIOXIDE LEVEL 24 MEQ/L (21-32); CHLORIDE LEVEL 101 MEQ/L (98-107); CK-MB VALUE MASS 8.8 NG/ML (<3.6); CPK CREATINE PHOSPHOKINASE 366 U/L (39-308); CREATININE FOR GFR 1.01 MG/DL (0.70-1.30); ETHYL ALCOHOL (ETHANOL) 0.222 % (0.000-0.010); GLOMERULAR FILTRATION RATE > 60.0 (>56); GLUCOSE, FASTING 94 MG/DL (70-100); NT-PRO BNP 57 PG/ML (<125); POTASSIUM SERUM 3.8 MEQ/L (3.5-5.1); SALICYLATE LEVEL 5.4 MG/DL (5.0-30.0); SODIUM LEVEL 135 MEQ/L (136-145); TOTAL PROTEIN 6.9 GM/DL (6.4-8.2); TROPONIN I < 0.02 NG/ML (< 0.10)
--- NOTE | 2021-02-07 02:27 | REPVR ---
PROCEDURE INFORMATION: Exam: XR Chest Exam date and time: 02/07/21 (1:27am) Age: 60 years old Clinical indication: Dyspnea and cough TECHNIQUE: Imaging protocol: Portable CXR Views: 1 view COMPARISON: Portable CXR of 07/23/20 FINDINGS: Comparison is made with a portable CXR done on 07/23/20. No focal infiltrates. No pleural effusions. Normal heart size. Uncoiled thoracic aorta. No significant vascular congestion. No pneumothorax. IMPRESSION: No acute chest pathology. The lung rdz remain clear. Electronically signed by: Danisha Valentine On 02/07/2021 02:27:37 AM
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
[2021-02-07] MEDS ORDERED: ALBUTEROL SULFATE 2.5 MG/0.5 ML INH NEB SOLN NEB PRN (04:40)
[2021-02-07] MEDS ORDERED: MOM 30ML SUSPENSION UDC PO PRN (04:40)
[2021-02-07] MEDS ORDERED: LORazepam 2 MG TAB PO PRN (04:40)
[2021-02-07] MEDS ORDERED: NS 500 ML IV ONE (04:40)
[2021-02-07] MEDS ORDERED: MAALOX 30 ML SUSP *UDC PO PRN (04:40)
[2021-02-07] MEDS ORDERED: ONDANSETRON 4 MG ORAL DISINTEGRATING TAB PO PRN (04:40)
[2021-02-07] MEDS ORDERED: ACETAMINOPHEN TAB 650MG DOSE (2X325MG) PO PRN (04:40)
[2021-02-07] MEDS ORDERED: ALBU83IN INH (05:07)
[2021-02-07] MEDS ORDERED: IBUP1TAB7 PO (05:07)
[2021-02-07] MEDS ORDERED: traZODone 50 MG TAB PO PRN (05:10)
[2021-02-07] MEDS ORDERED: IBUPROFEN 800 MG TAB PO PRN (05:10)
[2021-02-07] MEDS: OLANZapine 10 MG TAB PO SCH ×2 (05:16→22:01)
[2021-02-07] MEDS: THIAMINE 100 MG TAB PO SCH ×2 (05:21→22:01)
--- NOTE | 2021-02-07 05:41 | ECGEPIP ---
[facility] - ED Test Date: 2021-02-07 Pat Name: LAURO CARDENAS Department: Room: - Gender: Male Entry Level Accountant: ELENA : 1960 Requested By: CARMELA Giron Order Number: [id number] Reading MD: Florencio Quintero Measurements Intervals [place] Rate: 91 P: 70 CA: 130 QRS: 62 QRSD: 86 T: 49 QT: 370 QTc: 455 Interpretive Statements Normal sinus rhythm POOR R WAVE PROGRESSION RATE CHANGE COMPARED TO 07/23/20 Electronically Signed on 02-07-2021 5:41:32 EDT by Florencio Quintero
[2021-02-07] MEDS: IPRATROPIUM 0.5MG/ALBUTEROL 2.5MG INH SOL UD 3ML (DUONEB) NEB SCH ×3 (08:11→20:40)
[2021-02-07 08:55] VITALS: BP 132/86
[2021-02-07] MEDS: HYDROCORTISONE 1% CREAM 30 GM TOP SCH ×2 (09:00→22:01)
[2021-02-07] MEDS: FOLIC ACID 1 MG TAB PO SCH (09:07)
[2021-02-07] MEDS: MULTIVITAMINS/MINERALS THERAP 1 TAB PO SCH (09:07)
[2021-02-07] MEDS: FLUoxetine 20 MG CAP PO SCH (09:07)
[2021-02-07] MEDS: predniSONE 20 MG TAB PO SCH (09:07)
[2021-02-07] MEDS: GABAPENTIN 300 MG CAP PO SCH ×2 (09:08→22:01)
[2021-02-07] MEDS: ENOXAPARIN 40MG/0.4ML SYRINGE (J1650 PER 10MG) SC SCH (09:08)
[2021-02-07 09:33] LABS: HEMATOCRIT 41.5 % (42.0-52.0); HEMOGLOBIN 12.9 g/dl (13.5-17.5); MEAN CORPUSCULAR HEMOGLOBIN 28.5 pg (27.0-33.0); MEAN CORPUSCULAR HGB CONC 31.1 g/dl (32.0-36.5); MEAN CORPUSCULAR VOLUME 91.6 fl (80.0-96.0); PLATELET COUNT, AUTOMATED 226 10^3/uL (150-450); RED BLOOD COUNT 4.53 10^6/uL (4.30-6.10); WHITE BLOOD COUNT 2.8 10^3/uL (4.0-10.0)
[2021-02-07 10:01] LABS: BLOOD UREA NITROGEN 11 MG/DL (7-18); CALCIUM LEVEL 8.9 MG/DL (8.5-10.1); CARBON DIOXIDE LEVEL 20 MEQ/L (21-32); CHLORIDE LEVEL 102 MEQ/L (98-107); CPK CREATINE PHOSPHOKINASE 346 U/L (39-308); CREATININE FOR GFR 0.94 MG/DL (0.70-1.30); GLOMERULAR FILTRATION RATE > 60.0 (>56); GLUCOSE, FASTING 127 MG/DL (70-100); POTASSIUM SERUM 4.6 MEQ/L (3.5-5.1); SODIUM LEVEL 136 MEQ/L (136-145)
[2021-02-07] MEDS ORDERED: diphenhydrAMINE 25MG CAP PO PRN (10:30)
[2021-02-07 14:00] VITALS: BP 135/84
[2021-02-07 22:00] VITALS: BP 126/75
[2021-02-08] MEDS: IPRATROPIUM 0.5MG/ALBUTEROL 2.5MG INH SOL UD 3ML (DUONEB) NEB SCH ×3 (02:04→14:43)
[2021-02-08 06:00] VITALS: BP 143/89
[2021-02-08 08:36] LABS: HEMATOCRIT 38.6 % (42.0-52.0); HEMOGLOBIN 12.2 g/dl (13.5-17.5); MEAN CORPUSCULAR HEMOGLOBIN 28.7 pg (27.0-33.0); MEAN CORPUSCULAR HGB CONC 31.6 g/dl (32.0-36.5); MEAN CORPUSCULAR VOLUME 90.8 fl (80.0-96.0); PLATELET COUNT, AUTOMATED 245 10^3/uL (150-450); RED BLOOD COUNT 4.25 10^6/uL (4.30-6.10); WHITE BLOOD COUNT 11.1 10^3/uL (4.0-10.0)
[2021-02-08 09:20] LABS: BLOOD UREA NITROGEN 16 MG/DL (7-18); CALCIUM LEVEL 9.3 MG/DL (8.5-10.1); CARBON DIOXIDE LEVEL 27 MEQ/L (21-32); CHLORIDE LEVEL 102 MEQ/L (98-107); CREATININE FOR GFR 0.99 MG/DL (0.70-1.30); GLOMERULAR FILTRATION RATE > 60.0 (>56); GLUCOSE, FASTING 117 MG/DL (70-100); SODIUM LEVEL 137 MEQ/L (136-145)
[2021-02-08 09:21] LABS: POTASSIUM SERUM 3.6 MEQ/L (3.5-5.1)
[2021-02-08] MEDS: GABAPENTIN 300 MG CAP PO SCH (10:01)
[2021-02-08] MEDS: MULTIVITAMINS/MINERALS THERAP 1 TAB PO SCH (10:02)
[2021-02-08] MEDS: predniSONE 20 MG TAB PO SCH (10:02)
[2021-02-08] MEDS: THIAMINE 100 MG TAB PO SCH (10:02)
[2021-02-08] MEDS: FLUoxetine 20 MG CAP PO SCH (10:02)
[2021-02-08] MEDS: FOLIC ACID 1 MG TAB PO SCH (10:02)
[2021-02-08] MEDS: ENOXAPARIN 40MG/0.4ML SYRINGE (J1650 PER 10MG) SC SCH (10:03)
[2021-02-08] MEDS: HYDROCORTISONE 1% CREAM 30 GM TOP SCH (10:03)
--- NOTE | 2021-02-08 10:36 | MHCRPDOC ---
[facility] Consultation Consultation DATE OF CONSULTATION: 02/08/21 CONSULTATION REQUESTED BY: REASON FOR CONSULTATION: 60-year-old single male with the history of alcohol use disorder, and several brief inpatient psychiatric admission in 2019, but no subsequent outpatient treatment. He was admitted to medical unit due to exacerbation of his COPD and apparently expressed vague suicidal ideas and psychiatric consult was called.. RELEVANT HISTORY: Patient had 3 previous admissions in 2019 , due to situational depression secondary to his ongoing alcohol abuse and unstable living situation. Patient denies a outpatient treatment since then and has not been taking any psychotropic medicine.. He admits to ongoing alcohol use, drinking 4- 5 24 ounce a daily but no history of DT and no history of a detox or rehabilitation treatment. PAST PSYCHIATRIC HISTORY: 3 brief psy. admissions in 2019 PAST MEDICAL HISTORY: Par admission, HPI FAMILY HISTORY: Mother: ] Father: ] Siblings: No contact Children: 2 daughters, aged 35 and 33, both living in all higher PERSONAL AND SOCIAL HISTORY: The patient was born and raised in [place]. Resides in: [place] Marital Status: S Single, was and first in 1999. She had a common-law of 19 years, who left him about 4 weeks ago, which prompted this particular episode Children: Employment: On SSI SUBSTANCE ABUSE HISTORY: Smoking: Daily smoker ETOH: Daily drinker beer Illicit Drugs: Smokes pot LEGAL HISTORY: . Denies MENTAL STATUS EXAMINATION: Patient is a AGE-year old male, who is , cooperative and in no acute distress. Speech is , relevant, coherent. Language skills are good. Thought processes including: Organized, goal directed. Thought content: The patient reports that he was feeling lonely and upset after his common-law left about 3 weeks ago. He continued to drink. I was feeling quite sad when he was admitted on an remembers that he said he wished he was . Patient reports that he is feeling better since his admission and he has no thoughts of suicide at all and he wants to leave for his children and grandchildren. He has no history of the suicide attempt. Denies any current thoughts, plan or intent. Abstract reasoning, and computation: , Fair. Description of associations: Organized and coherent. Description of abnormal or psychotic thoughts: . He denies any hallucination, paranoia.. Judgment: , Fair. Insight: , Fair. Orientation to , well oriented. Recent and remote memory: Good. Attention span and concentration: , Fair. Language: . Fund of knowledge: [Average]. Mood: [, Mildly depressed]. Affect: [, Appropriate with good range of emotion and smiled appropriately at times]. DIAGNOSIS: 1. [Adjustment disorder with mixed emotion]. Alcohol use disorder, continuous PLAN: 1. [Patient does not feel suicidal anymore and is willing to attend outpatient clinic. He stated that he made an appointment at a community clinic for this Thursday, but may have to reschedule.]. 2. [Patient does not appear to be acutely suicidal at all and does not meet the listing for involuntary admission. He is not in need of one-to-one observation]., He can be discharged to home when he is medically stable and no psychotropic medication is indicated and he would need outpatient follow Vital Signs Vital Signs Date Time Temp Pulse Resp B/P (MAP) Pulse Ox O2 Delivery O2 Flow Rate FiO2 02/08/21 06:00 98.1 79 19 143/89 (107) 96 Nasal Cannula 2.0 Laboratory Data 24H Labs Laboratory Tests 2 02/08/21 07:52: Nucleated Red Blood Cells % (auto) 0.0, Anion Gap 8, Glomerular Filtration Rate > 60.0, Calcium Level 9.3 Home Medications Current Medications Current Medications Medications (Trade) Dose Ordered Sig/Luz Maria Route PRN Reason Start Time Stop Time Status Last Admin Dose Admin Acetaminophen (Tylenol Tab) 650 mg Q4H PRN PO PAIN OR FEVER 02/07/21 04:40 Al Hydrox/Mg Hydrox/Simethicone (Mylanta) 30 ml DAILY PRN PO DYSPEPSIA 02/07/21 04:40 Albuterol Sulfate (Proventil Neb) 2.5 mg Q1HP PRN NEB SHORTNESS OF BREATH 02/07/21 04:40 Albuterol/ Ipratropium (Duoneb (Ipr 0.5mg/Alb 2.5mg)) 3 ml RQ6H NEB 02/07/21 08:00 02/08/21 07:26 Diphenhydramine HCl (Benadryl) 25 mg Q6HP PRN PO ITCHING 02/07/21 10:30 Enoxaparin Sodium (Lovenox) 40 mg DAILY SC 02/07/21 09:00 02/08/21 10:03 Fluoxetine HCl (PROzac) 60 mg DAILY PO 02/07/21 09:00 02/08/21 10:02 Folic Acid (Folic Acid) 1 mg DAILY PO 02/07/21 09:00 02/08/21 10:02 Gabapentin (Neurontin) 600 mg BID PO 02/07/21 09:00 02/08/21 10:01 Home Med (Med Rec Complete!) ASDIRECTED XX 02/07/21 05:10 02/07/21 05:10 DC Hydrocortisone (Hydrocortisone 1% Cream) APPLY TO AFFECTED AREA(S)... BID TOP 02/07/21 09:00 02/08/21 10:03 Ibuprofen (Advil) 800 mg TID PRN PO PAIN 02/07/21 05:10 Lorazepam (Ativan) 2 mg ASDIRECTED PRN PO SEE PROTOCOL 02/07/21 04:40 Magnesium Hydroxide (Milk Of Magnesia) 30 ml DAILY PRN PO CONSTIPATION 02/07/21 04:40 Multivitamins (Theragram-M) 1 tab DAILY PO 02/07/21 09:00 02/08/21 10:02 Olanzapine (ZyPREXA) 10 mg QHS PO 02/06/21 21:00 02/07/21 22:01 Ondansetron HCl (Zofran Odt) 2 mg Q6HP PRN PO n/v 02/07/21 04:40 Prednisone (Deltasone) 40 mg DAILY PO 02/07/21 09:00 02/08/21 10:02 Thiamine HCl (Thiamine HCl) 100 mg BID PO 02/07/21 04:48 02/09/21 21:01 02/08/21 10:02 Trazodone HCl (Desyrel) 50 mg QHS PRN PO INSOMNIA 02/07/21 05:10 Scheduled Fluoxetine Hcl (Fluoxetine HCl) 20 Mg Capsule, 60 MG PO DAILY, (Reported) Gabapentin (Gabapentin) 600 Mg Tablet, 600 MG PO BID, (Reported) Olanzapine (Olanzapine) 10 Mg Tablet, 10 MG PO QHS, (Reported) Scheduled PRN Albuterol Sulf (Albuterol Sulfate) 2.5 Mg/3 Ml Vial.neb, 2.5 MG INH Q6H PRN for SHORTNESS OF BREATH, (Reported) Albuterol Sulfate (Albuterol Sulfate Hfa) 8.5 Gm Hfa.aer.ad, 2 PUFFS INH Q4H PRN for SHORTNESS OF BREATH, (Reported) Ibuprofen (Ibuprofen) 800 Mg Tablet, 800 MG PO TID PRN for PAIN, (Reported) Trazodone HCl (Trazodone HCl) 50 Mg Tablet, 50 MG PO QHS PRN for INSOMNIA, (Reported) Allergies Coded Allergies: No Known Allergies (Verified , 05/19/19) MEGHAN ACOSTA M.D. February 08, 2021 10:36
[2021-02-08] MEDS ORDERED: ALBU8.5H INH (10:53)
[2021-02-08] MEDS ORDERED: HYDR1CR TOP (10:53)
[2021-02-08] MEDS ORDERED: PRED20TA PO (10:53)
[2021-02-08] MEDS ORDERED: DOXY-350 PO (10:53)
[2021-02-08] MEDS ORDERED: TESS100C PO (10:53)
--- NOTE | 2021-02-08 17:39 | DSES ---
DISCHARGE SUMMARY DATE OF ADMISSION: 02/07/2021 DATE OF DISCHARGE: 02/08/2021 DISCHARGE DIAGNOSES: 1. Acute chronic obstructive pulmonary disease (COPD) exacerbation. 2. Passive suicidal ideation. 3. Chronic tobacco abuse. 4. Bedbug infestation. CONSULTS DURING HOSPITALIZATION: Dr. Washington of psychiatry. PROCEDURES PERFORMED DURING HOSPITALIZATION: None. DISCHARGE DISPOSITION: The patient is discharged to home. CONDITION ON DISCHARGE: Stable without need for oxygen. DISCHARGE INSTRUCTIONS: The patient is instructed to follow-up with his PCP in approximately one week. The patient is to take prednisone 40 mg daily for the next week along with doxycycline. He is to use hydrocortisone cream to treat his bedbug infestation. The patient is to abstain from tobacco use. IMAGING DATA: Chest x-ray one view showed no acute pathology. PERTINENT LABORATORY DATA: White count 11.1, hemoglobin 12.2, hematocrit 38.6, platelet count 245,000. Sodium 137, potassium 3.6, chloride 102, bicarb 27, anion gap 8, BUN 16, creatinine 0.99, glucose 117. Lactic acid was 1.8. AST 76, ALT 71. Salicylate and acetaminophen were normal. Alcohol level was 0.222. COVID swab was negative. HOSPITAL COURSE: Mr. Narayanan is a 60-year-old gentleman who presented to the hospital with worsening shortness of breath and a nonproductive cough. He was diagnosed as having a COPD exacerbation. The patient was admitted to the hospital service. During his evaluation in the ER, he expressed suicidal ideation. He was placed on suicide precautions with a sitter. Psychiatry was consulted and the patient was subsequently cleared for release home. Clinically his COPD exacerbation had improved. He was subsequently discharged home with prescriptions in stable condition. DISCHARGE PHYSICAL EXAMINATION: VITAL SIGNS: Temperature 98.1, pulse 79, respirations 19, blood pressure 142/89. O2 sats were 93% on room air. GENERAL: The patient is alert and oriented x3. He appears to be in no acute distress. He is resting comfortably. His breathing is unlabored. HEENT: His head is atraumatic. Pupils symmetric and reactive to light. Oropharynx is clear. NECK: Supple. LUNGS: Sounds are present without rales, wheezing, or rhonchi on expiration or inspiration. HEART: S1, S2. He is slightly tachycardic. ABDOMEN: Soft and nontender. EXTREMITIES: Without any significant cyanosis, clubbing, or edema. He does have evidence of bedbug infestation, which has improved with steroid cream. DISCHARGE MEDICATIONS: 1. Tessalon Perles 100 mg p.o. t.i.d. as needed for cough. 2. Doxycycline 100 mg twice a day for seven days. 3. Hydrocortisone cream 1% applied topically twice a day to affected areas. 4. Prednisone 40 mg daily for seven days. 5. Albuterol nebulizer every six hours as needed. 6. Albuterol inhaler every four hours as needed. 7. Fluoxetine 60 mg daily. 8. Gabapentin 600 mg twice a day. 9. Ibuprofen 800 mg t.i.d. as needed for pain. 10. Olanzapine 10 mg at bedtime. 11. Trazodone 50 mg at bedtime for insomnia. Total of 30 minutes spent completing all discharge paperwork.
== END 2021-02-08 15:50 | disposition home or self-care (01) | DRG 140 ==
LOC: M ED 00:33 → M ED INP 04:36 → ENRESERV 08:13 → M MS5PR 08:50
PROVIDERS: ADMIT Internal Medicine; ATTEND Internal Medicine
DX: J44.1 Chronic obstructive pulmonary disease with (acute) exacerbation (principal); G62.9 Polyneuropathy, unspecified; F32.9 Major depressive disorder, single episode, unspecified; F17.200 Nicotine dependence, unspecified, uncomplicated; M54.5 Low back pain; Z91.5 Personal history of self-harm; H54.62 Unqualified visual loss, left eye, normal vision right eye; F10.10 Alcohol abuse, uncomplicated; F43.25 Adjustment disorder with mixed disturbance of emotions and conduct; B88.8 Other specified infestations; Z87.820 Personal history of traumatic brain injury; Z79.899 Other long term (current) drug therapy

== ENCOUNTER 2021-03-13 20:39 | Emergency (ER) | payer OTHER ==
[~2021-03-13] VITALS: Ht 172.7 cm; Wt 67.0 kg
[~2021-03-13 20:39] MED LIST changes: +ALBU83IN INH; +DOXY-350 PO; +HYDR1CR TOP; +IBUP1TAB7 PO; +TESS100C PO
[2021-03-13] MEDS ORDERED: methylPREDNISolone 125MG 2ML VIAL IV ONE (22:00)
[2021-03-13 22:14] LABS: BASO # 0.1 10^3/uL (0.0-0.2); EOS # 0.1 10^3/uL (0.0-0.5); EOS % 1.1 % (0.0-3.0); HEMATOCRIT 33.3 % (42.0-52.0); HEMOGLOBIN 10.4 g/dl (13.5-17.5); LYMPH # 1.1 10^3/uL (1.5-5.0); LYMPH % 12.9 % (24.0-44.0); MEAN CORPUSCULAR HEMOGLOBIN 26.9 pg (27.0-33.0); MEAN CORPUSCULAR HGB CONC 31.2 g/dl (32.0-36.5); MEAN CORPUSCULAR VOLUME 86.3 fl (80.0-96.0); MONO # 1.1 10^3/uL (0.0-0.8); NEUTROPHILS # 5.8 10^3/uL (1.5-8.5); NEUTROPHILS % 70.5 % (36.0-66.0); PLATELET COUNT, AUTOMATED 264 10^3/uL (150-450); RED BLOOD COUNT 3.86 10^6/uL (4.30-6.10); WHITE BLOOD COUNT 8.2 10^3/uL (4.0-10.0)
[2021-03-13] MEDS: COMBIVENT RESPIMAT 100-20MCG INHALER 4GM INH SCH ×3 (22:40→23:08)
[2021-03-13 22:50] LABS: ALBUMIN 3.6 GM/DL (3.2-5.2); ALT/SGPT 84 U/L (12-78); BILIRUBIN,DIRECT 0.2 MG/DL (0.0-0.2); BILIRUBIN,TOTAL 0.7 MG/DL (0.2-1.0); BLOOD UREA NITROGEN 14 MG/DL (7-18); CALCIUM LEVEL 8.5 MG/DL (8.5-10.1); CARBON DIOXIDE LEVEL 25 MEQ/L (21-32); CHLORIDE LEVEL 97 MEQ/L (98-107); CK-MB VALUE MASS 5.7 NG/ML (<3.6); CPK CREATINE PHOSPHOKINASE 277 U/L (39-308); CREATININE FOR GFR 1.09 MG/DL (0.70-1.30); GLOMERULAR FILTRATION RATE > 60.0 (>56); GLUCOSE, FASTING 91 MG/DL (70-100); MB/CK RELATIVE INDEX 2.06 (< OR =4); SODIUM LEVEL 135 MEQ/L (136-145); TOTAL PROTEIN 6.8 GM/DL (6.4-8.2); TROPONIN I 0.09 NG/ML (< 0.10)
--- NOTE | 2021-03-13 22:58 | REPVR ---
PROCEDURE INFORMATION: Exam: XR Chest Exam date and time: 03/13/2021 9:13 PM Age: 60 years old Clinical indication: Other: Dyspnea; Additional info: Dyspnea/cough TECHNIQUE: Imaging protocol: XR of the chest. Views: 1 view. COMPARISON: 1. CR PORTABLE CHEST X-RAY 02/07/2021 1:27 AM 2. AR PORTABLE CHEST X-RAY 07/23/2020 10:16 AM 3. CR Chest, 2 view PA, Lat 04/29/2020 11:[address] ANGIO CHEST 07/23/2020 11:25 AM FINDINGS: Lungs: Unremarkable. No consolidation. Pleural spaces: Unremarkable. No pleural effusion. No pneumothorax. Heart/Mediastinum: Unremarkable. No cardiomegaly. Bones/joints: Unremarkable. IMPRESSION: No acute findings. Electronically signed by: Gigi Naqvi On 03/13/2021 22:58:31 PM
[2021-03-14 01:43] LABS: CK-MB VALUE MASS 5.1 NG/ML (<3.6); MB/CK RELATIVE INDEX 1.96 (< OR =4); TROPONIN I 0.06 NG/ML (< 0.10)
[2021-03-14] MEDS ORDERED: PRED20TA PO (01:55)
[2021-03-14 02:15] VITALS: BP 116/73
--- NOTE | 2021-03-14 20:40 | ECGEPIP ---
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
--- NOTE | 2021-03-14 20:43 | ECGEPIP ---
[facility] - ED Test Date: 2021-03-14 Pat Name: LAURO CARDENAS Department: Room: - Gender: Male Wholesale Account Manager: roslyn : 1960 Requested By: NIKKO Deshpande Order Number: [id number] Reading MD: Florencio Quintero Measurements Intervals [place] Rate: 77 P: 74 MA: 124 QRS: 70 QRSD: 84 T: 73 QT: 390 QTc: 441 Interpretive Statements Normal sinus rhythm SIMILAR TO 03/13/21 Electronically Signed on 03-14-2021 20:43:00 EDT by Florencio Quintero
== END 2021-03-14 02:18 | disposition home or self-care (01) ==
LOC: M ED 20:39
DX: J44.1 Chronic obstructive pulmonary disease with (acute) exacerbation (principal); F33.9 Major depressive disorder, recurrent, unspecified; F17.200 Nicotine dependence, unspecified, uncomplicated; Z79.899 Other long term (current) drug therapy; Z87.820 Personal history of traumatic brain injury; Z98.890 Other specified postprocedural states
CPT/HCPCS: 71045; 80048; 80076; 82550; 82553; 85025; 93005; 93041; 94760; 96374; 99285; J2930